=== PATIENT | female | born 1940 | race Caucasian/White ===

== ENCOUNTER 2019-12-13 11:57 | Outpatient (CLI) | payer OTHER, SELFPAY ==
--- NOTE | ~2019-12-13 | MM_ITS ---
EXAMINATION: MM screening [facility] BI w chad HISTORY: Screening mammogram TECHNIQUE: Craniocaudal and mediolateral oblique 3-D tomosynthesis images were obtained and synthetic 2-D images were generated. CAD analysis was submitted and interpreted. COMPARISON: 09/08/2018 bilateral diagnostic digital mammogram 09/10/2017 and 02/24/2017 diagnostic left digital mammogram 02/15/2017, 02/12/2016 bilateral digital screening mammogram examinations BREAST PARENCHYMAL COMPOSITION: The breasts are heterogeneously dense, which may obscure small masses . FINDINGS: There is a history of prior right breast biopsy in 2006 with diagnosis of lobular carcinoma in situ. An apparently new 3 x 7 mm opacity is noted in the posterior mid upper left breast (craniocaudal Chad synthesis image 34/54). Diagnostic left mammogram and left breast ultrasound examination are recommen ded. Otherwise there is no evidence of suspicious mass, calcification, or architectural distortion to sugg est malignancy in either breast. There has been no other suspicious interval change. IMPRESSION: 1. New 3 x 7 mm opacity in posterior upper mid left breast; 2. Diagnostic left mammogram and left breast ultrasound examination are recommended BI-RADS Category 0: Incomplete: Needs additional imaging evaluation. Reviewed, dictated and finalized at location D. IMPRESSION: 1. New 3 x 7 mm opacity in posterior upper mid left breast; 2. Diagnostic left mammogram and left breast ultrasound examination are recomme nded BI-RADS Category 0: Incomplete: Needs additional imaging evaluation.
== END 2019-12-13 11:58 | disposition home or self-care (01) ==
PROVIDERS: PCP Internal Medicine; Visit Provider Internal Medicine
DX: Z12.31 Encounter for screening mammogram for malignant neoplasm of breast (principal); R92.8 Other abnormal and inconclusive findings on diagnostic imaging of breast
CPT/HCPCS: 77063; 77067

== ENCOUNTER → 2020-01-03 09:44 | Outpatient (CLI) | payer OTHER, SELFPAY ==
--- NOTE | ~2020-01-03 | MM_ITS ---
EXAMINATION: MM diagnostic mammo unilat LT HISTORY: Follow-up left breast asymmetry TECHNIQUE: Additional 3-D tomosynthesis images of the left breast were performed and synthetic 2-D im ages were generated. CAD analysis was submitted and interpreted. COMPARISON: 12/13/2019 BREAST PARENCHYMAL COMPOSITION: Breast composed of scattered areas of fibroglandular density. FINDINGS: The focal asymmetry medially in the left breast on CC view compresses with spot views, comp atible with superimposed fibroglandular tissue. No suspicious masses, calcifications or architectural distortion are identified in the left breast to suggest malignancy. IMPRESSION: 1. No mammographic evidence for malignancy in the left breast. 2. Routine yearly screening mammogram and regular clinical breast examination are recommended. BI-RADS Category 1: Negative Reviewed, dictated and finalized at location A. IMPRESSION: 1. No mammographic evidence for malignancy in the left breast. 2. Routine yearly screening mammogram and regular clinical breast examination a re recommended. BI-RADS Category 1: Negative
== END ==
PROVIDERS: PCP Internal Medicine; Visit Provider Internal Medicine
DX: R92.8 Other abnormal and inconclusive findings on diagnostic imaging of breast (principal)
CPT/HCPCS: 77065

== ENCOUNTER → 2021-01-04 11:51 | Outpatient (CLI) | payer OTHER, SELFPAY ==
--- NOTE | ~2021-01-04 | MM_ITS ---
EXAMINATION: MM screening [facility] BI w prisca HISTORY: Screening mammogram TECHNIQUE: Craniocaudal and mediolateral oblique 3-D tomosynthesis images were obtained and synthetic 2-D images were generated. CAD analysis was submitted and interpreted. COMPARISON: 01/03/2020 diagnostic left mammogram 12/13/2019 bilateral digital screening mammogram 09/12/2018 bilateral diagnostic mammography and limited left breast ultrasound 09/10/2017 and 02/24/2017 diagnostic left mammogram 02/15/2017 and 02/12/2016 bilateral digital screening mammogram examinations BREAST PARENCHYMAL COMPOSITION: The breasts are heterogeneously dense, which may obscure small masses . FINDINGS: Stable architectural distortion and retraction of the right breast; prior right breast biop sy in 2006. Occasional benign calcifications. There is no evidence of suspicious mass, calcification, or architectural distortion to suggest malignancy in either breast. There has been no suspicious int erval change. IMPRESSION: 1. No mammographic evidence of malignancy. 2. Recommend routine screening mammography in one year. BI-RADS Category 2: Benign finding(s). Reviewed, dictated and finalized at location A.
== END ==
PROVIDERS: PCP Internal Medicine; Visit Provider Internal Medicine
DX: Z12.31 Encounter for screening mammogram for malignant neoplasm of breast (principal)
CPT/HCPCS: 77063; 77067

== ENCOUNTER 2022-02-19 10:55 | Outpatient (CLI) | payer OTHER, SELFPAY ==
--- NOTE | ~2022-02-19 | MM_ITS ---
EXAMINATION: MM screening tre BI w prisca HISTORY: Screening mammogram, family history of breast cancer in her mother. TECHNIQUE: Craniocaudal and mediolateral oblique 3-D tomosynthesis images were obtained and synthetic 2-D images were generated. CAD analysis was submitted and interpreted. COMPARISON: 01/04/2021, 01/03/2020, 12/13/2019 BREAST PARENCHYMAL COMPOSITION: The breasts are heterogeneously dense, which may obscure small masses . FINDINGS: No suspicious mass, calcification, or architectural distortion are identified in either carly ast to suggest malignancy. There has been no suspicious interval change. IMPRESSION: 1. No mammographic evidence of malignancy. 2. Recommend routine screening mammography while the patient remains in good health. BI-RADS Category 1: Negative Reviewed, dictated and finalized at location A. MOMETER MECHANIC IMPRESSION: 1. No mammographic evidence of malignancy. 2. Recommend routine screening mammography while the patient remains in good he alth. BI-RADS Category 1: Negative
== END 2022-02-19 10:56 | disposition home or self-care (01) ==
LOC: ANHIMG 10:55
PROVIDERS: Visit Provider Family Medicine
DX: Z12.31 Encounter for screening mammogram for malignant neoplasm of breast (principal); Z85.3 Personal history of malignant neoplasm of breast
CPT/HCPCS: 77063; 77067

== ENCOUNTER 2022-03-25 11:49 | Inpatient (IN) | payer OTHER, SELFPAY ==
[2022-03-25] VITALS (15 sets, daily range): BP systolic 99–160; BP diastolic 52–93; PULSE 85–114; RESP 16–24; TEMP 36.4–37.7; O2SAT 91–99; BMI 28.8; BMI 28.0
--- NOTE | ~2022-03-25 | CT_ITS ---
CT Scan of the Chest without Contrast: Clinical Indication: Pleural effusion Technique: Contiguous sections were acquired throughout the chest without intravenous contrast. Dose reduction technique was used on this scan by utilizing automated exposure control and iterative recon struction technique. The dose-length product (DLP) was 159.97 mGy-cm. Findings: There is a lobulated mass at the anteromedial left upper lobe region, extending into the anterior med iastinum, measuring approximately 4.8 x 3.6 cm in transverse dimensions (axial image 40 for example). There are probable several enlarged metastatic lymph nodes in the anterior mediastinum and prevascul ar region, somewhat adjacent to the dominant mass. There are also probable numerous pleural metastati c implants throughout the left hemithorax, with extensive somewhat nodular thickening of the pleural surface. There is a very large, probably partially loculated left pleural effusion, with essentially complete left lower lobe atelectasis and partial left upper lobe atelectasis. Mass effect and large left effusion resultant mediastinal shift to the left. Minimal right pleural ef fusion is present. Right lung is otherwise clear. No pericardial effusion. Images through the upper abdomen reveal no abnormalities. Impression: 4.8 x 3.6 cm anteromedial left upper lobe mass extending into the anterior mediastinum, consistent wi th neoplastic lesion, likely bronchogenic carcinoma. Probable metastatic, mildly enlarged mediastinal lymph nodes adjacent to the mass, as detailed above. Suspected extensive pleural metastatic disease in the left hemithorax. Large, partially loculated left pleural effusion with complete left lower lobe atelectasis and partia l left upper lobe atelectasis. Minimal right pleural effusion. Reviewed, dictated and finalized at location . GER STUDIO Impression: 4.8 x 3.6 cm anteromedial left upper lobe mass extending into the anterior medi astinum, consistent with neoplastic lesion, likely bronchogenic carcinoma. Probable metastatic, mildly enlarged mediastinal lymph nodes adjacent to the ma ss, as detailed above. Suspected extensive pleural metastatic disease in the left hemithorax. Large, partially loculated left pleural effusion with complete left lower lobe atelectasis and partial left upper lobe atelectasis. Minimal right pleural effusion.
--- NOTE | ~2022-03-25 | XR_ITS ---
EXAMINATION: [id number] DATE: 03/27/2022 12:33 INDICATION: Left pleural effusion status post thoracentesis. TECHNIQUE: Frontal and lateral views of the chest were obtained. COMPARISON: Chest single view 03/25/2022 FINDINGS: There is a small left pleural effusion. There are airspace opacities in left mid and lower lung zones. No pneumothorax. The heart size is normal. IMPRESSION: 1. Small left pleural effusion with improvement status post thoracentesis. 2. Airspace opacities in left mid and lower lung zones, consistent with atelectasis versus pneumonia. Reviewed, dictated and finalized at location A. WINDER MACHINE OPERATOR IMPRESSION: 1. Small left pleural effusion with improvement status post thoracentesis. 2. Airspace opacities in left mid and lower lung zones, consistent with atelect asis versus pneumonia.
--- NOTE | ~2022-03-25 | US_ITS ---
EXAMINATION: 1. US thoracentesis guidance only 2. US biopsy lung w/imaging DATE: 03/27/2022 12:44 INDICATION: Left pleural thickening and pleural effusion. TECHNIQUE: The procedure and its risks, benefits, and alternatives were discussed with the patient. P otential risks discussed included bleeding, infection, and pneumothorax. The patient understood the r isks and agreed to proceed. The skin was prepped and draped in sterile fashion. 1% lidocaine was used for local anesthesia. Under ultrasound guidance, four 18-gauge core needle biopsies were taken of th e left posterior parietal pleura. Under ultrasound guidance, a 5 Fr catheter with trochar was advanced into the left pleural effusion. Fluid was aspirated. The catheter was removed, and a dressing was applied. There were no immediate co mplications. FINDINGS: Ultrasound images demonstrate the core biopsy needle spanning the left posterior parietal pleura. Ult rasound images demonstrate a left pleural effusion and the catheter within the fluid. IMPRESSION: 1. Ultrasound-guided core needle biopsy of the left posterior parietal pleura. 2. Successful ultrasound-guided thoracentesis yielding 850 mL of shabbir-colored fluid. Reviewed, dictated and finalized at location A. IGHT SLICING MACHINE OPERATOR IMPRESSION: 1. Ultrasound-guided core needle biopsy of the left posterior parietal pleura. 2. Successful ultrasound-guided thoracentesis yielding 850 mL of shabbir-colored fluid.
--- NOTE | ~2022-03-25 | XR_ITS ---
Clinical Indication: Shortness of breath PA and lateral views of the chest: Comparison: 03/24/2012 Findings: Large left pleural effusion is present, with near white out of the left hemithorax. Suspect ed minimal right pleural fluid. Cardiomediastinal silhouette is within normal limits. Bones and soft tissues are unremarkable. Impression: Large left pleural effusion. Probable minimal right pleural effusion. Reviewed, dictated and finalized at location . E FERRY OPERATOR Impression: Large left pleural effusion. Probable minimal right pleural effusion.
--- NOTE | ~2022-03-25 | XR_ITS ---
EXAMINATION: [id number] DATE: 03/25/2022 16:37 INDICATION: Left pleural effusion status post thoracentesis. TECHNIQUE: A single frontal view of the chest was obtained. COMPARISON: Chest CT 03/25/2022, chest 2 views at 12:29 PM FINDINGS: There is a large left pleural effusion. There are airspace opacities at left lung base, lik luis eduardo atelectasis. No pneumothorax. The heart size is normal. IMPRESSION: 1. Large left pleural effusion with improvement status post thoracentesis. Reviewed, dictated and finalized at location A. STANT PROFESSOR OF PHYSICS
--- NOTE | ~2022-03-25 | US_ITS ---
EXAMINATION: US thoracentesis DATE: 03/25/2022 16:44 INDICATION: pleural effusion TECHNIQUE: The procedure and its risks, benefits, and alternatives were discussed with the patient. P otential risks discussed included bleeding, infection, and pneumothorax. The patient understood the r isks and agreed to proceed. The skin was prepped and draped in sterile fashion. 1% lidocaine was used for local anesthesia. Under ultrasound guidance, a 5 Fr catheter with trochar was advanced into the left pleural effusion. Fluid was aspirated. The catheter was removed, and a dressing was applied. The re were no immediate complications. FINDINGS: Ultrasound images demonstrate a left pleural effusion and the catheter within the fluid. IMPRESSION: 1. Successful ultrasound-guided thoracentesis yielding 1000 mL of shabbir-colored fluid. Reviewed, dictated and finalized at location A. E CATCHER IMPRESSION: 1. Successful ultrasound-guided thoracentesis yielding 1000 mL of shabbir-colore d fluid.
--- NOTE | 2022-03-25 11:50 | ECG_ITS ---
Measurements Intervals [place] Rate: 106 P: 50 [place]: 130 QRS: -15 QRSD: 97 T: 113 QT: 319 QTc: 425 Interpretive Statements SINUS TACHYCARDIA INCOMPLETE RIGHT BUNDLE BRANCH BLOCK LEFT VENTRICULAR HYPERTROPHY AND ST-T CHANGE MINIMAL Q WAVES- HIGH LATERAL LEADS ABNORMAL ECG NO PREVIOUS ECG AVAILABLE FOR COMPARISON Electronically Signed On 03-25-2022 12:10:44 SHELTER MONITOR by Kevin Hart D.O.
[2022-03-25 12:15] LABS: Basophils Absolute Auto 0.1 K/mm3 (0.0-0.1); Basophils Percent Auto 0.5 % (0.2-1.2); Eosinophils Absolute Auto 0.2 K/mm3 (0-0.3); Eosinophils Percent Auto 1.8 % (0-4.4); Hemoglobin 10.6 g/dL (12.0-15.0); Immature Granulocyte Absolute 0.04 K/mm3 (0.00-0.031); Immature Granulocyte Percent A 0.4 % (0-0.5); Lymphocytes Absolute Auto 1.25 K/mm3 (0.9-3.2); Lymphocytes Percent Auto 13.4 % (18.3-44.2); Mean Corpuscular HGB Conc 29.4 g/dl (32-36); Mean Corpuscular Hemoglobin 25.4 pg (26-34); Mean Corpuscular Volume 86.3 fl (80-100); Monocytes Absolute Auto 0.8 K/mm3 (0.1-0.6); Monocytes Percent Auto 8.5 % (2.6-8.5); Neutrophils Percent Auto 75.4 % (45.5-73.1); Platelet Count Result 344 k/mm3 (150-375); Red Blood Count 4.17 M/mm3 (4.2-5.4); Red Cell Distribution Width 14.8 % (11.5-14.5); White Blood Count 9.3 K/mm3 (4.5-10.0)
[2022-03-25 12:32] LABS: Alanine Aminotransferase 19 U/L (6-35); Albumin Level 3.5 g/dL (3.5-5.1); Alkaline Phosphatase 128 U/L (38-126); Anion Gap 6 mmol/L (8-16); Aspartate Amino Transferase 34 U/L (14-36); Bilirubin,Total 0.4 mg/dL (0.2-1.3); Blood Urea Nitrogen 22 mg/dL (7-17); Calcium 8.9 mg/dL (8.4-10.2); Carbon Dioxide 28 mmol/L (22-30); Chloride 105 mmol/L (98-107); Estimated CRCL calculation 22 ml/min; Estimated Glomerular Filt Rate 33; Glucose 98 mg/dL (65-110); Sodium 139 mmol/L (137-145)
--- NOTE | 2022-03-25 13:30 | ED.SOB ---
HPI - SOB/Dyspnea General Chief Complaint: Shortness of Breath/Dyspnea Stated Complaint: SOB Time Seen by Provider: 03/25/22 13:30 Source: patient Mode of arrival: ambulatory Limitations: no limitations History of Present Illness HPI Narrative: The patient is an 81 yo female (former smoker), hx of breast cancer, DM, HTN, presenting to the ER for evaluation of dyspnea. Patient reports dyspnea since COVID infection in 11/10, with worsening dyspnea over the past week. Patient states she has been too dyspneic to walk or complete normal ADLs. Pt denies productive cough, fever, chest pain. She denies leg swelling or calf pain. Pt denies other pain. No lightheadedness or dizziness. No weakness. History obtained directly from patient. I reviewed patient's chart, patient with office visit to primary care physician's office today, found to be borderline hypoxic and sent to our emergency department for evaluation of her dyspnea. Related Data Home Medications Medication Instructions Recorded Confirmed acetaminophen 650 mg 650 mg PO Q8H 12/09/21 03/25/22 tablet,extended release aspirin 81 mg tablet,delayed 81 mg PO DAILY 12/09/21 03/25/22 release insulin glargine 100 unit/mL (3 10 unit subcut DAILY 12/09/21 03/25/22 mL) subcutaneous pen (Lantus Solostar U-100 Insulin) budesonide-formoterol HFA 80 2 puff inhalation BID 03/25/22 03/25/22 mcg-4.5 mcg/actuation aerosol inhaler (Symbicort) Allergies Allergy/AdvReac Type Severity Reaction Status Date / Time gentamicin Allergy Severe ATN Verified 03/25/22 19:09 codeine Allergy Mild nausea Verified 03/25/22 19:09 methocarbamol AdvReac Mild Rash Verified 03/25/22 19:09 Contrast Media Allergy Mild N/V, Uncoded 03/25/22 19:09 STOMACH PAIN Review of Systems Review of Systems: CONSTITUTIONAL: Denies fever, chills, or sweats. EYES: Denies visual changes, redness, or discharge. ENT: Denies rhinorrhea, congestion, sore throat, or otalgia. CARDIOVASCULAR: Denies chest pain, palpitations, or edema. RESPIRATORY: Denies cough, reports dyspnea GASTROINTESTINAL: Denies abdominal pain, nausea, vomiting, or diarrhea. GENITOURINARY: Denies dysuria or hematuria. SKIN: Denies rash or itching. MUSCULOSKELETAL: Denies back pain, joint pain, or myalgia. NEUROLOGIC: Denies headache, numbness, or weakness. 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 with stage 1 through stage 4 chronic kidney disease Chronic kidney disease, stage 3 (moderate) Chronic pain Diabetes mellitus with renal manifestations, controlled Hearing loss History of antineoplastic chemotherapy History of malignant neoplasm of breast History of tobacco use Impacted cerumen of both ears Insomnia, unspecified Long-term insulin use Mixed hyperlipidemia Reflux esophagitis Shortness of breath Vitamin D deficiency Family History Family History Mother Cerebrovascular accident Family history of malignant neoplasm of breast in first degree relative Acute myocardial infarction Sibling Malignant neoplasm of prostate Family history of malignant neoplasm Father Acute myocardial infarction Other Diabetes mellitus Social History Social History Smoking packs per day: 0.8 Smoking cigarettes per day: 16.0 Years smoked: 40 Smoking pack-years: 32.00 Smoking status: Former smoker Tobacco type: cigarettes Smoking end date: 03/22/90 Alcohol intake: never Substance use: never Lack of Transportation: No Lack of Food: Never True Current Housing: I Have Housing Concerned About Future Housing: No Difficulty Paying Gas/Electric Bills: No Difficulty Paying for Meds: No Currently Unemployed: No Education: Don't Know Difficulty w/ Childcare or
[2022-03-25 14:22] LABS: INR 1.2; Partial Thromboplastin Time 31.8 SECONDS (22.3-36.8); Prothrombin Time 14.3 Seconds (11.1-14.7)
[2022-03-25 15:09] LABS: Lactate Dehydrogenase 235 U/L (120-246); Triglycerides 84 mg/dL (<150)
[2022-03-25 15:33] LABS: Influenza A QL RT-PCR Negative (Negative); Influenza B QL RT-PCR Negative (Negative); SARS-CoV-2 RNA PCR Negative
[2022-03-25] MEDS: ONDANSETRON INJ 4 MG/2 ML VIAL IV PUSH (15:39)
--- NOTE | 2022-03-25 16:18 | PC.NURSE ---
Pt taken to have thoracentesis at this time
[2022-03-25 16:56] LABS: pH Pleural Fluid 7.178 (7.210-7.500)
--- NOTE | 2022-03-25 17:45 | PM.IMHP ---
H&P: HPI History of Present Illness Date/Time: 03/25/22 17:45 Chief Complaint: Shortness of breath. Narrative: This is a very pleasant 81-year-old female with insulin-dependent diabetes, hypertension, chronic kidney disease, and breast cancer who presented to the emergency department from home for evaluation of shortness of breath. She had COVID in October 2021 and since that time she feels that her breathing has not returned to baseline. Over the past 1 month however she has become increasingly dyspnea on lesser and lesser exertion and she made an appointment with her doctor today for evaluation. She was noted to be hypoxic and was directed to the emergency department or her SpO2 has been stable above 90% on room air. Chest x-ray showed a large left pleural effusion with near whiteout of the left hemithorax and a subsequent CT of the chest showed a 4.8 x 3.6 centimeter anteromedial left upper lobe mass concerning for bronchogenic carcinoma in addition to a large, partially loculated left pleural effusion. Thoracentesis yielded 100 mL of shabbir colored urine and she reports feeling a bit better with regards to her breathing since that time however she is now having mild pleuritic pain and a dry cough. She is being admitted in this setting for further treatment and evaluation. With further questioning she admits an unintentional 10 pound weight loss in the last 1 month or so. Her appetite has been poor and she is just not hungry. She has not been having nausea or vomiting though did have some nausea today. She denies syncope, near syncope, exertional chest pain, pleuritic pain, palpitations, orthopnea, paroxysmal nocturnal dyspnea, edema, and calf pain Review of Systems Review of Systems: Twelve systems were reviewed and are negative except for as per HPI. [facility] Past Medical History Medical History Breast cancer Status post lumpectomy and anti hormone therapy. Chronic kidney disease, stage 3 (moderate) Chronic pain Hearing loss History of tobacco use Insomnia, unspecified Insulin dependent type 2 diabetes mellitus Mixed hyperlipidemia Reflux esophagitis Shortness of breath Vitamin D deficiency Surgical History Surgical History History of appendectomy History of breast biopsy History of exploratory laparotomy History of hernia repair History of lumpectomy Family History Family History Mother Cerebrovascular accident Family history of malignant neoplasm of breast in first degree relative Acute myocardial infarction Sibling Malignant neoplasm of prostate Family history of malignant neoplasm Father Acute myocardial infarction Other Diabetes mellitus Social History Social History Social History: Surrogate medical decision maker: Janet Lo, daughter. Code status: Full code. Smoking packs per day: 0.8 Smoking cigarettes per day: 16.0 Years smoked: 40 Smoking pack-years: 32.00 Smoking status: Former smoker Tobacco type: cigarettes Smoking end date: 03/22/90 Alcohol intake: never Substance use: never Lack of Transportation: No Lack of Food: Never True Current Housing: I Have Housing Concerned About Future Housing: No Difficulty Paying Gas/Electric Bills: No Difficulty Paying for Meds: No Currently Unemployed: No Education: Don't Know Difficulty w/ Childcare or Family Care: No Additional living arrangements comments: with 1 daughter. Lives in [place]. 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 Spiritual care concerns: No Meds Home Medications and Allergies Home Medications Medication Instructions Recorded Confirmed Type losartan 100 mg tablet 100 mg PO DAILY #90 tabs 06/02/21 03/26/22 Rx si
--- NOTE | 2022-03-25 18:49 | ADMGEN ---
This patient, Maria Dolores Lo, was admitted to [facility] Surg Room 317-02. Patient/family oriented to hospital policies and general routines including ID bracelet, bed and alarms, visiting hours, pain management, procedures, bathroom and other care routines, personal items, smoking policy, room service/diet, and visiting hours. Information on how to activate the Rapid Response Team has been discussed. Patient/Family are encouraged to report perceived risks to care and to ask questions if they do not understand what they are told or what they should do.
[2022-03-25] MEDS: ACETAMINOPHEN 325 MG TABLET 650 MG PO (22:02)
[2022-03-25 22:10] LABS: Appearance Pleural Fluid Hazy (Clear); Color Pleural Fluid Yellow (Colorless); Neutrophils Pleural Fluid 14 % (0-25); Nucleated Cell Pleural Fluid 419 /uL (0-1000); Pleural fluid source Pleural fluid; RBC Pleural Fluid 1207 /uL (0-0)
[2022-03-25 22:11] LABS: Lymphocytes Pleural Fluid 70 %; Macrophages Pleural Fluid 16 %
[2022-03-26] MEDS: traMADol HCL (*CRX) 50 MG TABLET PO ×2 (04:04→11:36)
[2022-03-26 06:00] VITALS: BP 144/56; PULSE 77; RESP 16; TEMP 36.7; O2SAT 94
[2022-03-26] MEDS: ACETAMINOPHEN 325 MG TABLET 650 MG PO ×3 (06:22→22:01)
[2022-03-26 06:51] LABS: Hematocrit 30.9 % (37.0-47.0); Hemoglobin 9.4 g/dL (12.0-15.0); Mean Corpuscular HGB Conc 30.4 g/dl (32-36); Mean Corpuscular Volume 85.6 fl (80-100); Mean Platelet Volume 10.8 fl (7.4-10.4); Platelet Count Result 323 k/mm3 (150-375); Red Blood Count 3.61 M/mm3 (4.2-5.4); Red Cell Distribution Width 14.6 % (11.5-14.5); White Blood Count 8.1 K/mm3 (4.5-10.0)
[2022-03-26 07:07] LABS: Alanine Aminotransferase 16 U/L (6-35); Albumin Level 2.8 g/dL (3.5-5.1); Alkaline Phosphatase 100 U/L (38-126); Anion Gap 2 mmol/L (8-16); Aspartate Amino Transferase 32 U/L (14-36); Bilirubin,Total 0.3 mg/dL (0.2-1.3); Blood Urea Nitrogen 17 mg/dL (7-17); CRP 6.2 mg/dL (<1.0); Calcium 8.5 mg/dL (8.4-10.2); Carbon Dioxide 29 mmol/L (22-30); Chloride 106 mmol/L (98-107); Estimated CRCL calculation 23 ml/min; Estimated Glomerular Filt Rate 36; Glucose 105 mg/dL (65-110); Potassium 4.3 mmol/L (3.4-5.0); Sodium 137 mmol/L (137-145)
[2022-03-26 07:17] LABS: Hemoglobin A1C 6.7 % (<5.7)
[2022-03-26 07:22] LABS: Procalcitonin 0.1 ng/mL
[2022-03-26 08:31] LABS: Glucose Point of Care 107 mg/dl (65-105)
[2022-03-26 08:32] LABS: Iron 17 ug/dL (37-170)
[2022-03-26 08:42] LABS: Percent Iron Saturation 9 % (20-50)
[2022-03-26 09:03] LABS: Thyroid Stimulating Hormone Reflex 0.807 uIU/mL (0.465-4.68)
--- NOTE | 2022-03-26 09:15 | P.PNIM_ITS ---
Progress Note: A&P Assessment and Plan (1) Mass of left lung: Code(s): R91.8 - Other nonspecific abnormal finding of lung field Status: Acute Assessment and Plan: 81-year-old female presented to the ER on 03/25/2022 with chief complaint of worsening dyspnea with exertion over the past month. Chest x-ray revealed large left-sided pleural effusion. CT revealed left lung mass concerning for primary bronchogenic carcinoma and finding suggestive of local metastatic disease. * Thoracentesis yielded a 1000 mL of shabbir colored fluid * Cell count, Gram stain, culture, pH, cytology pending at this time * Dr. Dong consulted in the ED * Patient started on broad-spectrum antibiotics, vancomycin and cefepime for possible underlying infection * BUN creatinine stable * Patient states that she has had 10 lb weight loss over the past month with associated cough and decreased appetite. * Elevated CRP * Total protein and albumin is decreased * Consult hematology/oncology * Consult pulmonology * Monitor labs -stable (2) Pleural effusion: Code(s): J90 - Pleural effusion, not elsewhere classified Status: Acute Assessment and Plan: * Thoracentesis, yielding a 1000 mL of shabbir colored fluid * This is improved patient's breathing and shortness of breath * Patient continuing to have pleuritic chest pain as well as cough. (3) Anemia: Code(s): D64.9 - Anemia, unspecified Status: Acute Assessment and Plan: Patient found to have normocytic anemia iron studies ordered * Iron studies revealed iron deficiency anemia * Iron supplement ordered daily * Monitor H&H (4) Insulin dependent type 2 diabetes mellitus: Code(s): E11.9 - Type 2 diabetes mellitus without complications; Z79.4 - [facility] (current) use of insulin Status: Chronic Assessment and Plan: Chronic * Patient started on 10 units of Lantus with sliding scale of 2-5 units NovoLog * Hypoglycemic protocols initiated * Bedside glucose management a.c. HS * Diabetic diet (5) Chronic kidney disease, stage 3 (moderate): Code(s): N18.3 - Chronic kidney disease, stage 3 (moderate) Status: Chronic Assessment and Plan: Chronic * Monitor BUN and creatinine * Previous labs revealed a creatinine usually between 1.4 and 1.9 Subjective Date/time seen: 03/26/22 09:15 Interval history: 81-year-old female with a history of diabetes, hyperlipidemia, history of breast cancer, CKD. Patient presented in ER due to shortness of breath. Chest x-ray revealed left pleural effusion. CT chest revealed left upper lobe mass suspected bronchogenic carcinoma. Patient states that she did have a 10 lb weight loss recently as well as a decreased appetite. Patient underwent thoracentesis. Patient did have cough after fluid was taken off of her lungs bu t has since resolved. Patient does have some back pain at the site of the thoracentesis. Patient no longer having shortness of breath, denies chest pain, nausea, vomiting, abdominal pain, fever, dizziness and headache. Review of Systems Review of Systems: All systems reviewed & are unremarkable except as noted in HPI and below Exam Narrative: GENERAL: Comfortable, no acute distress HENMT: moist mucous membranes EYES: EOM intact b/l NECK: no lymphadenopathy RESPIRATORY: Right upper and lower lung clear to auscultation, absent breath sounds over left lower lung and distant breath sounds over left upper lung. CARDIO: RRR GI: soft, nontender, bowel sounds present SKIN: no rashes EXTREMITIES: no ed
--- NOTE | 2022-03-26 09:15 | PM.IMPN ---
Progress Note: A&P Assessment and Plan (1) Mass of left lung: Code(s): R91.8 - Other nonspecific abnormal finding of lung field Status: Acute Assessment and Plan: 81-year-old female presented to the ER on 03/25/2022 with chief complaint of worsening dyspnea with exertion over the past month. Chest x-ray revealed large left-sided pleural effusion. CT revealed left lung mass concerning for primary bronchogenic carcinoma and finding suggestive of local metastatic disease. Thoracentesis yielded a 1000 mL of shabbir colored fluid Cell count, Gram stain, culture, pH, cytology pending at this time Dr. Dong consulted in the ED Patient started on broad-spectrum antibiotics, vancomycin and cefepime for possible underlying infection BUN creatinine stable Patient states that she has had 10 lb weight loss over the past month with associated cough and decreased appetite. Elevated CRP Total protein and albumin is decreased Consult hematology/oncology Consult pulmonology Monitor labs -stable (2) Pleural effusion: Code(s): J90 - Pleural effusion, not elsewhere classified Status: Acute Assessment and Plan: Thoracentesis, yielding a 1000 mL of shabbir colored fluid This is improved patient's breathing and shortness of breath Patient continuing to have pleuritic chest pain as well as cough. (3) Anemia: Code(s): D64.9 - Anemia, unspecified Status: Acute Assessment and Plan: Patient found to have normocytic anemia iron studies ordered Iron studies revealed iron deficiency anemia Iron supplement ordered daily Monitor H&H (4) Insulin dependent type 2 diabetes mellitus: Code(s): E11.9 - Type 2 diabetes mellitus without complications; Z79.4 - terminal supervisor (current) use of insulin Status: Chronic Assessment and Plan: Chronic Patient started on 10 units of Lantus with sliding scale of 2-5 units NovoLog Hypoglycemic protocols initiated Bedside glucose management a.c. HS Diabetic diet (5) Chronic kidney disease, stage 3 (moderate): Code(s): N18.3 - Chronic kidney disease, stage 3 (moderate) Status: Chronic Assessment and Plan: Chronic Monitor BUN and creatinine Previous labs revealed a creatinine usually between 1.4 and 1.9 Subjective Date/time seen: 03/26/22 09:15 Interval history: 81-year-old female with a history of diabetes, hyperlipidemia, history of breast cancer, CKD. Patient presented in ER due to shortness of breath. Chest x-ray revealed left pleural effusion. CT chest revealed left upper lobe mass suspected bronchogenic carcinoma. Patient states that she did have a 10 lb weight loss recently as well as a decreased appetite. Patient underwent thoracentesis. Patient did have cough after fluid was taken off of her lungs but has since resolved. Patient does have some back pain at the site of the thoracentesis. Patient no longer having shortness of breath, denies chest pain, nausea, vomiting, abdominal pain, fever, dizziness and headache. Review of Systems Review of Systems: All systems reviewed & are unremarkable except as noted in HPI and below Exam Narrative: GENERAL: Comfortable, no acute distress HENMT: moist mucous membranes EYES: EOM intact b/l NECK: no lymphadenopathy RESPIRATORY: Right upper and lower lung clear to auscultation, absent breath sounds over left lower lung and distant breath sounds over left upper lung. CARDIO: RRR GI: soft, nontender, bowel sounds present SKIN: no rashes EXTREMITIES: no edema, redness or tenderness Objective Data Vital Signs Vital Signs: Vital Signs - 24 hr 03/25/22 11:51 03/25/22 13:55 03/25/22 14:53 Temperature 99.9 F H Pulse Rate 114 H 97 Respiratory Rate 24 H 17 Blood Pressure 139/65 159/76 H Pulse Oximetry 92 95 97 Oxygen Delivery Room Air Room Air Oxygen Flow Rate 03/25/22 14:15 03/25/22 14:53 03/25/22 15:01 Temperature Pulse Rate 95 97 10
[2022-03-26] MEDS: SIMVASTATIN 20 MG TABLET PO (09:38)
[2022-03-26] MEDS: TERAZOSIN HCL 5 MG CAPSULE PO (09:38)
[2022-03-26] MEDS: INSULIN GLARGINE (*BKC) 100 UNITS/ML 10 UNITS SUB-Q (09:39)
[2022-03-26] MEDS: LOSARTAN POTASSIUM 100 MG TABLET PO (09:39)
[2022-03-26] MEDS: FLUTICASONE/SALMETEROL 45-21 MCG INHALER 1 PUFF 2 PUFF INHALATION (10:41)
[2022-03-26 11:58] LABS: Glucose Point of Care 146 mg/dl (65-105)
[2022-03-26 13:49] VITALS: BMI 28.9
[2022-03-26 14:38] VITALS: BP 116/71; PULSE 95; RESP 16; TEMP 36.7; O2SAT 95
--- NOTE | 2022-03-26 16:07 | PM.CNPUL ---
Assessment and Plan Assessment and plan (1) Mass of left lung: Code(s): R91.8 - Other nonspecific abnormal finding of lung field Status: Acute Assessment and Plan: Patient went to a 28 pack year history of tobacco use, quit in 1990, 7-10 lb weight loss over the last month and now with a left upper lobe mass and a large left pleural effusion. Patient had a thoracentesis and this is lymphocytic effusion with pH of 7.18 and no organisms seen on Gram stain. Clinically her shortness of breath improved following removal of 1000 mL pleural fluid. Etiology of mass and left pleural effusion includes lung cancer. She has no infectious complaints at this time. Will await cytology from the 1st thoracentesis. If this is negative will likely room at recommend repeat thoracentesis as there still appears to be a large left pleural effusion by chest x-ray. Patient has no infectious complaints the pH over fluid is 7.18 at this time would continue vancomycin and cefepime, both started 03/25/2022, until cultures are negative. The patient does not have bullous emphysematous changes on her CT scan and has no wheezing. At this time I do not think she has a COPD exacerbation and I see no need for bronchodilators, inhaled steroids or systemic steroids. I will discontinue the Advair. Discuss this with the patient's daughter, son-in-law, son and [id number] at the bedside. Discussed with EV Gloria. Will follow with you. History of Present Illness History of Present Illness Consult date: 03/26/22 Chief complaint: Left Pleural Effusion/Left Lung Mass Narrative: 03/26/2022: This is a new pulmonary consult for left lung mass in left pleural effusion. 81-year-old woman with a history of hypertension, diabetes, hyperlipidemia, breast cancer status post lumpectomy approximately 15 years ago followed by 5 years of tamoxifen followed with yearly mammograms a last of which was negative on 02/19/2022. Five weeks ago the patient developed shortness of breath. Prior to this the patient could walk 1 mi over 20 minutes and in no respiratory limitations in her activity of daily living. She denied fever, chills, rigors, phlegm, hemoptysis, or chest pain. Over the last 5 years her shortness of breath and dyspnea on exertion have worsened such at now she can only walk 1/2 block. She felt that her left chest was full. Patient tells me she smokes cigarettes from [id number] at 3/4 pack per day for a total of 28 pack years. Patient was exposed to secondhand smoke from her father and from her from [id number]. 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 Patient denies cancer, prior chemotherapy or radiation therapy. Patient presented to the emergency department on 03/25/2021 with a complaint of shortness of breath -dyspnea on exertion. Her room air saturations were 92%. Her white blood cell count was 9.3 with 1.8% eosinophils, hemoglobin was 10.6, her creatinine was 1.5, her serum bicarbonate was 28 her influenza in COVID RT PCR studies were negative. Her chest x-ray demonstrated a large left pleural effusion taking up approximately 85% of the left hemithorax with a shift of the trachea to the right. CT scan of the chest demonstrated a large left pleural effusion a left upper lobe 4 x 8 x 3.6 mass extending into the anterior mediastinum with enlarged mediastinal lymph nodes. Complete left lower lobe atelectasis and partial left upper lobe atelectasis. Minimal right pleural effusion. Patient underwent a left thoracentesis with 1000 mL of shabbir colored fluid removed. G stain showed moderate white blood cells and no organisms seen, pH was 7.18, nucleated cells of 419 with 14% neutrophils, 16% macrophage, chemistries and pathology are pending. Patient was empirically started vancomycin and cefepime.
[2022-03-26 17:00] LABS: Glucose Point of Care 110 mg/dl (65-105)
--- NOTE | 2022-03-26 19:18 | PDONCCN ---
HPI - Date of Consult Date/Time: 03/26/22 19:18 Requesting Physician: Samy De Los Santos MD Primary Care Provider: Te Gill, DO - Consult Narrative Reason for consult: Lung mass Narrative: Maria Dolores Lo is a 81 year old female with history of right-sided breast cancer diagnosed 15 years ago early stage disease status post lumpectomy and then endocrine therapy for 5 years duration. She was followed by Dr. Calixto mcallister up to 10 years ago. She came into the hospital with shortness of breath without any hemoptysis. She lost about [address] chest showed 4.8 x 3.6 cm left upper lobe lung mass with left-sided pleural effusion. Thoracentesis was performed and cytology is pending. Other labs showed normocytic anemia with renal insufficiency. She quit smoking more than 15 years ago. Review of Systems - Review of Systems All systems reviewed & are unremarkable except as noted in HPI and bel - Neurologic Reports system reviewed and no additional complaints, except as documented PMFSH Medical History: Medical History (Last Updated 03/26/22 @ 09:28 by Ines Ritchie PA-C) Breast cancer Status post lumpectomy and anti hormone therapy. Chronic kidney disease, stage 3 (moderate) Chronic pain Hearing loss History of tobacco use Insomnia, unspecified Insulin dependent type 2 diabetes mellitus Mixed hyperlipidemia Reflux esophagitis Shortness of breath Vitamin D deficiency Surgical History: Surgical History (Last Updated 03/25/22 @ 22:51 by Dory Gresham PA-C) History of appendectomy History of breast biopsy History of exploratory laparotomy History of hernia repair History of lumpectomy Family History: Family History (Last Reviewed 03/25/22 @ 22:51 by Dory Gresham PA-C) Mother Cerebrovascular accident Family history of malignant neoplasm of breast in first degree relative Acute myocardial infarction Sibling Malignant neoplasm of prostate Family history of malignant neoplasm Father Acute myocardial infarction Other Diabetes mellitus - Social History Social History: Social History (Last Updated 03/25/22 @ 22:52 by Dory Gresham PA-C) Alcohol Use: Alcohol intake: never Substance Use: Substance use: never Others: Spiritual care concerns: No Smoking Status: Smoking status: Former smoker Tobacco type: cigarettes Smoking end date: 03/22/90 Smoking Pack-years: Smoking packs per day: 0.8 Smoking cigarettes per day: 16.0 Years smoked: 40 Smoking pack-years: 32.00 Social Determinants of Health: Has the Lack of Transportation Kept You From Medical Appointments or From Getting Medications?: No Within the Past 12 Months, Were You Worried Whether Your Food Would Run Out Before You Got Money to Buy More?: Never True What is Your Housing Situation Today?: I Have Housing Are You Worried That in the Next 2 Months, You May Not Have Your Own Housing to Live In?: No Do You Have Trouble Paying Your Heating Or Electricity Bill?: No Do You Have Trouble Paying For Medicines?: No Are You Currently Unemployed and Looking for Work?: No Highest Level of Education Completed: Don't Know Do You Have Trouble With Childcare or the Care of a Family Member?: No Exam - Vital Signs Vital Signs - 24 hr 03/25/22 22:00 03/25/22 21:53 03/25/22 23:00 Temperature 36.4 C Pulse Rate 85 Respiratory Rate 16 Blood Pressure 138/61 Pulse Oximetry 95 91 Oxygen Delivery Room Air Room Air Oxygen Flow Rate 03/25/22 23:05 03/26/22 06:00 03/26/22 14:38 Temperature 36.7 C 36.7 C Pulse Rate 77 95 Respiratory Rate 16 16 Blood Pressure 144/56 H 116/71 Pulse Oximetry 96 94 95 Oxygen Delivery Nasal Cannula Oxygen Flow Rate 2 - Exam HEENT: EOMI, PERRLA, mucous membranes moist and pink Neck: supple. No: JVD Lungs: clear to auscultation, normal air movement Heart: no mu
[2022-03-26 19:21] VITALS: BP 112/55; PULSE 77; RESP 18; TEMP 36.6; O2SAT 91
[2022-03-26 20:00] VITALS: O2SAT 96
[2022-03-26 20:56] LABS: Glucose Point of Care 113 mg/dl (65-105)
[2022-03-27] VITALS (9 sets, daily range): BP systolic 106–140; BP diastolic 52–67; PULSE 81–93; RESP 16–20; TEMP 36.5–36.9; O2SAT 85–94
[2022-03-27] MEDS: ACETAMINOPHEN 325 MG TABLET 650 MG PO ×3 (05:18→20:21)
[2022-03-27 08:11] LABS: Glucose Point of Care 97 mg/dl (65-105)
--- NOTE | 2022-03-27 08:24 | P.PNIM_ITS ---
Progress Note: A&P Assessment and Plan (1) Mass of left lung: Code(s): R91.8 - Other nonspecific abnormal finding of lung field Status: Acute Assessment and Plan: 81-year-old female presented to the ER on 03/25/2022 with chief complaint of worsening dyspnea with exertion over the past month. Chest x-ray revealed large left-sided pleural effusion. CT revealed left lung mass concerning for primary bronchogenic carcinoma and finding suggestive of local metastatic disease. * Thoracentesis yielded a 1000 mL of shabbir colored fluid * Cell count, culture, pH, cytology pending at this time * G stain revealed moderate WBCs and no organisms seen * Dr. Dong consulted in the ED * Patient started on broad-spectrum antibiotics, vancomycin and cefepime for possible underlying infection * BUN creatinine stable * Patient states that she has had 10 lb weight loss over the past month with associated cough and decreased appetite. * Elevated CRP * Total serum protein and albumin is decreased * Consult hematology/oncology * Pulmonology following patient * Plan to repeat thoracentesis if cytology comes back negative. * 03/27/22 cytology from pleural fluid on 03/25/2022 was negative for malignancy. Patient underwent left thoracentesis with 850 mL of shabbir colored fluid removed. Patient underwent ultrasound-guided core needle biopsy. * Repeat chest x-ray demonstrated improved left pleural effusion * Per per pulmonology patient is okay to follow-up with them as an outpatient. * Oncology seeing patient and following. * Monitor labs -stable (2) Pleural effusion: Code(s): J90 - Pleural effusion, not elsewhere classified Status: Acute Assessment and Plan: * 03/25/2022 Thoracentesis, yielding a 1000 mL of shabbir colored fluid * This is improved patient's breathing and shortness of breath * Patient continuing to have pleuritic chest pain as well as cough. * 1622nd thoracentesis yielding 850 mL of shabbir fluid (3) Anemia: Code(s): D64.9 - Anemia, unspecified Status: Acute Assessment and Plan: Patient found to have normocytic anemia iron studies ordered * Iron studies revealed iron deficiency anemia * Iron supplement ordered daily * Monitor H&H (4) Insulin dependent type 2 diabetes mellitus: Code(s): E11.9 - Type 2 diabetes mellitus without complications; Z79.4 - laborer marine terminal (current) use of insulin Status: Chronic Assessment and Plan: Chronic * Patient started on 10 units of Lantus with sliding scale of 2-5 units NovoLog * Hypoglycemic protocols initiated * Bedside glucose management a.c. HS * Diabetic diet (5) Chronic kidney disease, stage 3 (moderate): Code(s): N18.3 - Chronic kidney disease, stage 3 (moderate) Status: Chronic Assessment and Plan: Chronic * Monitor BUN and creatinine * Previous labs revealed a creatinine usually between 1.4 and 1.9 Subjective Date/time seen: 03/27/22 08:24 Interval history: 81-year-old female with a history of diabetes, hyperlipidemia, history of breast cancer, CKD. Patient presented in ER due to shortness of breath. Chest x-ray revealed left pleural effusion. CT chest revealed left upper lobe mass suspected bronchogenic carcinoma. Patient states that she did have a 10 lb weight loss recently as well as a decreased appetite. Patient underwent thoracentesis on 03/26/2022. With speaking with patient today she states that she is fatigued. Patient denies chest pain, shortness a breath, nausea, vomiting, fever, abdominal pain and dizziness. Patient states that she has a dry cough but it is very mil
--- NOTE | 2022-03-27 08:24 | PM.IMPN ---
Progress Note: A&P Assessment and Plan (1) Mass of left lung: Code(s): R91.8 - Other nonspecific abnormal finding of lung field Status: Acute Assessment and Plan: 81-year-old female presented to the ER on 03/25/2022 with chief complaint of worsening dyspnea with exertion over the past month. Chest x-ray revealed large left-sided pleural effusion. CT revealed left lung mass concerning for primary bronchogenic carcinoma and finding suggestive of local metastatic disease. Thoracentesis yielded a 1000 mL of shabbir colored fluid Cell count, culture, pH, cytology pending at this time G stain revealed moderate WBCs and no organisms seen Dr. Dong consulted in the ED Patient started on broad-spectrum antibiotics, vancomycin and cefepime for possible underlying infection BUN creatinine stable Patient states that she has had 10 lb weight loss over the past month with associated cough and decreased appetite. Elevated CRP Total serum protein and albumin is decreased Consult hematology/oncology Pulmonology following patient Plan to repeat thoracentesis if cytology comes back negative. 03/27/22 cytology from pleural fluid on 03/25/2022 was negative for malignancy. Patient underwent left thoracentesis with 850 mL of shabbir colored fluid removed. Patient underwent ultrasound-guided core needle biopsy. Repeat chest x-ray demonstrated improved left pleural effusion Per per pulmonology patient is okay to follow-up with them as an outpatient. Oncology seeing patient and following. Monitor labs -stable (2) Pleural effusion: Code(s): J90 - Pleural effusion, not elsewhere classified Status: Acute Assessment and Plan: 03/25/2022 Thoracentesis, yielding a 1000 mL of shabbir colored fluid This is improved patient's breathing and shortness of breath Patient continuing to have pleuritic chest pain as well as cough. 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 HS Diabetic diet (5) Chronic kidney disease, stage 3 (moderate): Code(s): N18.3 - Chronic kidney disease, stage 3 (moderate) Status: Chronic Assessment and Plan: Chronic Monitor BUN and creatinine Previous labs revealed a creatinine usually between 1.4 and 1.9 Subjective Date/time seen: 03/27/22 08:24 Interval history: 81-year-old female with a history of diabetes, hyperlipidemia, history of breast cancer, CKD. Patient presented in ER due to shortness of breath. Chest x-ray revealed left pleural effusion. CT chest revealed left upper lobe mass suspected bronchogenic carcinoma. Patient states that she did have a 10 lb weight loss recently as well as a decreased appetite. Patient underwent thoracentesis on 03/26/2022. With speaking with patient today she states that she is fatigued. Patient denies chest pain, shortness a breath, nausea, vomiting, fever, abdominal pain and dizziness. Patient states that she has a dry cough but it is very mild. Review of Systems Review of Systems: All systems reviewed & are unremarkable except as noted in HPI and below Exam Narrative: GENERAL: Comfortable, no acute distress HENMT: moist mucous membranes EYES: EOM intact b/l NECK: no lymphadenopathy RESPIRATORY: Right upper and lower lung clear to auscultation, absent breath sounds over left lower lung and distan
[2022-03-27] MEDS: FERROUS SULFATE 324 MG TABLET PO (08:41)
[2022-03-27] MEDS: CHOLECALCIFEROL 1,000 UNITS TABLET 5000 UNITS PO (08:42)
[2022-03-27] MEDS: SIMVASTATIN 20 MG TABLET PO (08:42)
[2022-03-27] MEDS: LOSARTAN POTASSIUM 100 MG TABLET PO (08:42)
[2022-03-27] MEDS: MULTIVITAMINS THERAPEUTIC TAB (*BKC) 1 TABLET PO (08:42)
[2022-03-27] MEDS: ASPIRIN 81 MG ENTERIC TABLET PO (08:42)
[2022-03-27] MEDS: SACCHAROMYCES BOULARDII 250 MG CAPSULE PO (08:42)
[2022-03-27] MEDS: TERAZOSIN HCL 5 MG CAPSULE PO (08:43)
[2022-03-27] MEDS: INSULIN GLARGINE (*BKC) 100 UNITS/ML 10 UNITS SUB-Q (08:43)
[2022-03-27 09:42] LABS: Basophils Absolute Auto 0.1 K/mm3 (0.0-0.1); Basophils Percent Auto 0.9 % (0.2-1.2); Eosinophils Absolute Auto 0.3 K/mm3 (0-0.3); Eosinophils Percent Auto 3.6 % (0-4.4); Hematocrit 32.9 % (37.0-47.0); Hemoglobin 9.8 g/dL (12.0-15.0); Immature Granulocyte Absolute 0.04 K/mm3 (0.00-0.031); Immature Granulocyte Percent A 0.5 % (0-0.5); Lymphocytes Absolute Auto 1.17 K/mm3 (0.9-3.2); Lymphocytes Percent Auto 15.1 % (18.3-44.2); Mean Corpuscular HGB Conc 29.8 g/dl (32-36); Mean Corpuscular Hemoglobin 25.5 pg (26-34); Mean Corpuscular Volume 85.5 fl (80-100); Mean Platelet Volume 10.9 fl (7.4-10.4); Monocytes Absolute Auto 0.9 K/mm3 (0.1-0.6); Monocytes Percent Auto 10.9 % (2.6-8.5); Neutrophils Absolute Auto 5.4 K/mm3 (1.3-6.7); Platelet Count Result 325 k/mm3 (150-375); Red Blood Count 3.85 M/mm3 (4.2-5.4); Red Cell Distribution Width 14.6 % (11.5-14.5); White Blood Count 7.8 K/mm3 (4.5-10.0)
[2022-03-27 09:58] LABS: Alanine Aminotransferase 17 U/L (6-35); Alkaline Phosphatase 100 U/L (38-126); Anion Gap 2 mmol/L (8-16); Aspartate Amino Transferase 31 U/L (14-36); Bilirubin,Total 0.3 mg/dL (0.2-1.3); Blood Urea Nitrogen 16 mg/dL (7-17); Calcium 8.8 mg/dL (8.4-10.2); Carbon Dioxide 29 mmol/L (22-30); Chloride 108 mmol/L (98-107); Estimated CRCL calculation 24 ml/min; Estimated Glomerular Filt Rate 36; Glucose 120 mg/dL (65-110); Potassium 4.2 mmol/L (3.4-5.0); Sodium 139 mmol/L (137-145)
[2022-03-27 10:21] LABS: Anisocytosis 1+ (NORMAL); Hypochromasia 1+ (NORMAL); Platelet Estimate Adequate (Adequate); Poikilocytosis 1+ (NORMAL); Schistocytes None Seen (NORMAL)
[2022-03-27] MEDS: diphenhydrAMINE HCl CAP 25 MG CAPSULE 50 MG PO (11:21)
[2022-03-27] MEDS: PYRIDOXINE HCL 25 MG TABLET PO (11:22)
--- NOTE | 2022-03-27 12:46 | PM.PNPUL ---
Progress Note: A&P Assessment and Plan (1) Mass of left lung: Code(s): R91.8 - Other nonspecific abnormal finding of lung field Status: Acute Assessment and Plan: Patient went to a 28 pack year history of tobacco use, quit in 1990, 7-10 lb weight loss over the last month and now with a left upper lobe mass and a large left pleural effusion. Patient had a thoracentesis and this is lymphocytic effusion with pH of 7.18 and no organisms seen on Gram stain. Clinically her shortness of breath improved following removal of 1000 mL pleural fluid. Etiology of mass and left pleural effusion includes lung cancer. She has no infectious complaints at this time. Will await cytology from the 1st thoracentesis. If this is negative will likely room at recommend repeat thoracentesis as there still appears to be a large left pleural effusion by chest x-ray. Patient has no infectious complaints the pH over fluid is 7.18 at this time would continue vancomycin and cefepime, both started 03/25/2022, until cultures are negative. The patient does not have bullous emphysematous changes on her CT scan and has no wheezing. At this time I do not think she has a COPD exacerbation and I see no need for bronchodilators, inhaled steroids or systemic steroids. I will discontinue the Advair. Discuss this with the patient's daughter, son-in-law, son and [id number] at the bedside. 03/27 patient states that she has improved. She has minimal cough, this is dry with no hemoptysis. Cytology from pleural fluid on 03/25/2022 was negative for malignancy. I spoke with radiologist and patient underwent a left thoracentesis with 850 mL of shabbir colored fluid removed and patient had a ultrasound-guided core needle biopsy of a thickened parietal pleura. Repeat chest x-ray demonstrates improved left pleural effusion. White blood cell count is 7.8, currently she is on room air with saturations 90-91%. Oncology has been consulted. Pleural fluid is negative growth at 48 hours. Will discontinue antibiotics. From a pulmonary perspective patient is ready to be discharged home on no pulmonary medicines. I have ordered a home O2 assessment. Oncology has been consulted in the patient should follow up with the oncologist. Discussed with EV Gloria. Will sign off, call with questions. Subjective Date/time seen: 01/06/23 12:46 Interval history: 03/26/2022:? This is a new pulmonary consult for left lung mass in left pleural effusion.? 81-year-old woman with a history of hypertension, diabetes, hyperlipidemia, breast cancer status post lumpectomy approximately 15 years ago followed by 5 years of tamoxifen? followed with yearly mammograms a last of which was negative on 02/19/2022.? Five weeks ago the patient developed shortness of breath.? Prior to this the patient could walk 1 mi over 20 minutes and in no respiratory limitations in her activity of daily living.? She denied fever, chills, rigors, phlegm, hemoptysis, or chest pain.? Over the last 5 years her shortness of breath and dyspnea on exertion have worsened such at now she can only walk 1/2 block.? She felt that her left chest was full. ? Patient tells me she smokes cigarettes from [id number] at 3/4 pack per day for a total of? 28 pack years.? Patient was exposed to secondhand smoke from her father and from her from [id number].? 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 Patient denies cancer, prior chemotherapy or radiation therapy. Patient presented to the emergency? department on 03/25/2021 with a complaint of shortness of breath -dyspnea on exertion. ? Her room air saturations were 92%. ? Her white blood cell count was 9.3 with 1.8% eosinophils, hemoglobin was 10.6, her creatinine was 1.5, her serum bicarbonate was 28 her influenza in COVID RT PCR studies were
[2022-03-27 13:08] LABS: Glucose Point of Care 87 mg/dl (65-105)
[2022-03-27] MEDS: traMADol HCL (*CRX) 50 MG TABLET PO (15:38)
--- NOTE | 2022-03-27 16:33 | HOMEO2EVAL ---
Evaluation was performed at [facility]
--- NOTE | 2022-03-27 16:35 | HOMEO2EVAL ---
Evaluation was performed at [facility] Home Oxygen Evaluation RC: Home Oxygen (O2) Evaluation Start: 03/27/22 12:51 Freq: ONCE Status: Active Protocol: RPE Activity Type Activity Date Activity User E-sign Co-sign Detail Recorded Client Recorded Date Recorded By Document 03/27/22 14:30 NUNO [id number] 03/27/22 16:35 NUNO Document 03/27/22 14:35 NUNO [id number] 03/27/22 16:35 NUNO 03/27/22 03/27/22 14:30 14:35 Home O2 Evaluation [Oxygen] -Test Phase Resting Resting -Oxygen Delivery Room Air Nasal Cannula -Oxygen Flow Rate (L/min) 1 [Pulse Oximetry] -Pulse Oximetry (90-100 %) 85 L 92 [Pulse Rate] -Pulse Rate (60-100 beats/min) 85 [Comments] -Home Oxygen Evaluation Comments PT REQUIRES 1L HOME O2. UNABLE TO AMBULATE. [Charges] -Treatment Charges O2 Evaluation - Inpatient
--- NOTE | 2022-03-27 16:35 | PCRCNOTE ---
HOME O2 EVAL DONE, UNABLE TO WALK DUE TO RECENT BIOPSY AND THORACENTESIS. REQUIRED 1 L WITH REST. SET UP WITH [facility]. FAXED ORDER AND PAPERWORK. SHE WILL NEED A TANK WHEN SHE D/C...I DIDNT PUT A TRANSPORT TANK IN HER ROOM
[2022-03-27 17:26] LABS: Glucose Point of Care 92 mg/dl (65-105)
[2022-03-27 21:46] LABS: Glucose Point of Care 119 mg/dl (65-105)
[2022-03-28 06:00] VITALS: BP 145/62; PULSE 106; RESP 20; TEMP 37.6; O2SAT 90
[2022-03-28] MEDS: ACETAMINOPHEN 325 MG TABLET 650 MG PO (06:05)
[2022-03-28 07:32] LABS: Basophils Absolute Auto 0.1 K/mm3 (0.0-0.1); Basophils Percent Auto 0.7 % (0.2-1.2); Eosinophils Absolute Auto 0.3 K/mm3 (0-0.3); Eosinophils Percent Auto 2.7 % (0-4.4); Hematocrit 35.3 % (37.0-47.0); Hemoglobin 10.5 g/dL (12.0-15.0); Immature Granulocyte Absolute 0.05 K/mm3 (0.00-0.031); Immature Granulocyte Percent A 0.5 % (0-0.5); Lymphocytes Absolute Auto 1.52 K/mm3 (0.9-3.2); Lymphocytes Percent Auto 14.1 % (18.3-44.2); Mean Corpuscular HGB Conc 29.7 g/dl (32-36); Mean Corpuscular Hemoglobin 24.8 pg (26-34); Mean Corpuscular Volume 83.3 fl (80-100); Monocytes Percent Auto 9.6 % (2.6-8.5); Neutrophils Absolute Auto 7.8 K/mm3 (1.3-6.7); Neutrophils Percent Auto 72.4 % (45.5-73.1); Platelet Count Result 367 k/mm3 (150-375); Red Blood Count 4.24 M/mm3 (4.2-5.4); Red Cell Distribution Width 14.7 % (11.5-14.5); White Blood Count 10.8 K/mm3 (4.5-10.0)
--- NOTE | 2022-03-28 07:37 | P.PNIM_ITS ---
Progress Note: A&P Assessment and Plan (1) Mass of left lung: Code(s): R91.8 - Other nonspecific abnormal finding of lung field Status: Acute Assessment and Plan: 81-year-old female presented to the ER on 03/25/2022 with chief complaint of worsening dyspnea with exertion over the past month. Chest x-ray revealed large left-sided pleural effusion. CT revealed left lung mass concerning for primary bronchogenic carcinoma and finding suggestive of local metastatic disease. * Thoracentesis yielded a 1000 mL of shabbir colored fluid * Cell count, culture, pH, cytology pending at this time * G stain revealed moderate WBCs and no organisms seen * Dr. Dong consulted in the ED * Patient started on broad-spectrum antibiotics, vancomycin and cefepime for possible underlying infection * BUN creatinine stable * Patient states that she has had 10 lb weight loss over the past month with associated cough and decreased appetite. * Elevated CRP * Total serum protein and albumin is decreased * Consult hematology/oncology * Pulmonology following patient * Plan to repeat thoracentesis if cytology comes back negative. * 03/27/22 cytology from pleural fluid on 03/25/2022 was negative for malignancy. Patient underwent left thoracentesis with 850 mL of shabbir colored fluid removed. Patient underwent ultrasound-guided core needle biopsy. * Repeat chest x-ray demonstrated improved left pleural effusion * Per per pulmonology patient is okay to follow-up with them as an outpatient. * Oncology seeing patient and following. * Monitor labs -stable * 03/28/[address] Wen and he has discharged patient from his service and is okay following her as an outpatient. Will contact Dr. Dong today about discharge and follow up with the patient. (2) Pleural effusion: Code(s): J90 - Pleural effusion, not elsewhere classified Status: Acute Assessment and Plan: * 03/25/2022 Thoracentesis, yielding a 1000 mL of shabbir colored fluid * This is improved patient's breathing and shortness of breath * Patient continuing to have pleuritic chest pain as well as cough. * 03/27/22 thoracentesis yielding 850 mL of shabbir fluid * 03/28/22 Will plan to follow up as an outpatient with oncology for test results. (3) Anemia: Code(s): D64.9 - Anemia, unspecified Status: Acute Assessment and Plan: Patient found to have normocytic anemia iron studies ordered * Iron studies revealed iron deficiency anemia * Iron supplement ordered daily * Monitor H&H (4) Insulin dependent type 2 diabetes mellitus: Code(s): E11.9 - Type 2 diabetes mellitus without complications; Z79.4 - termite exterminator (current) use of insulin Status: Chronic Assessment and Plan: Chronic * Patient started on 10 units of Lantus with sliding scale of 2-5 units NovoLog * Hypoglycemic protocols initiated * Bedside glucose management a.c. HS * Diabetic diet (5) Chronic kidney disease, stage 3 (moderate): Code(s): N18.3 - Chronic kidney disease, stage 3 (moderate) Status: Chronic Assessment and Plan: Chronic * Monitor BUN and creatinine * Previous labs revealed a creatinine usually between 1.4 and 1.9 Subjective Date/time seen: 03/28/22 07:37 Interval history: 81-year-old female with a history of diabetes, hyperlipidemia, history of breast cancer, CKD. Patient presented in ER due to shortness of breath. Chest x-ray revealed left pleural effusion. CT chest revealed left upper lobe mass suspected bronchogenic carcinoma. Patient states that she did have a 10 lb weight loss recently as well as a
--- NOTE | 2022-03-28 07:37 | PM.IMPN ---
Progress Note: A&P Assessment and Plan (1) Mass of left lung: Code(s): R91.8 - Other nonspecific abnormal finding of lung field Status: Acute Assessment and Plan: 81-year-old female presented to the ER on 03/25/2022 with chief complaint of worsening dyspnea with exertion over the past month. Chest x-ray revealed large left-sided pleural effusion. CT revealed left lung mass concerning for primary bronchogenic carcinoma and finding suggestive of local metastatic disease. Thoracentesis yielded a 1000 mL of shabbir colored fluid Cell count, culture, pH, cytology pending at this time G stain revealed moderate WBCs and no organisms seen Dr. Dong consulted in the ED Patient started on broad-spectrum antibiotics, vancomycin and cefepime for possible underlying infection BUN creatinine stable Patient states that she has had 10 lb weight loss over the past month with associated cough and decreased appetite. Elevated CRP Total serum protein and albumin is decreased Consult hematology/oncology Pulmonology following patient Plan to repeat thoracentesis if cytology comes back negative. 03/27/22 cytology from pleural fluid on 03/25/2022 was negative for malignancy. Patient underwent left thoracentesis with 850 mL of shabbir colored fluid removed. Patient underwent ultrasound-guided core needle biopsy. Repeat chest x-ray demonstrated improved left pleural effusion Per per pulmonology patient is okay to follow-up with them as an outpatient. Oncology seeing patient and following. Monitor labs -stable 03/28/[address] Wen and he has discharged patient from his service and is okay following her as an outpatient. Will contact Dr. Dong today about discharge and follow up with the patient. (2) Pleural effusion: Code(s): J90 - Pleural effusion, not elsewhere classified Status: Acute Assessment and Plan: 03/25/2022 Thoracentesis, yielding a 1000 mL of shabbir colored fluid This is improved patient's breathing and shortness of breath Patient continuing to have pleuritic chest pain as well as cough. 03/27/22 thoracentesis yielding 850 mL of shabbir fluid 03/28/22 Will plan to follow up as an outpatient with oncology for test results. (3) Anemia: Code(s): D64.9 - Anemia, unspecified Status: Acute Assessment and Plan: Patient found to have normocytic anemia iron studies ordered Iron studies revealed iron deficiency anemia Iron supplement ordered daily Monitor H&H (4) Insulin dependent type 2 diabetes mellitus: Code(s): E11.9 - Type 2 diabetes mellitus without complications; Z79.4 - bed bug exterminator (current) use of insulin Status: Chronic Assessment and Plan: Chronic Patient started on 10 units of Lantus with sliding scale of 2-5 units NovoLog Hypoglycemic protocols initiated Bedside glucose management a.c. HS Diabetic diet (5) Chronic kidney disease, stage 3 (moderate): Code(s): N18.3 - Chronic kidney disease, stage 3 (moderate) Status: Chronic Assessment and Plan: Chronic Monitor BUN and creatinine Previous labs revealed a creatinine usually between 1.4 and 1.9 Subjective Date/time seen: 03/28/22 07:37 Interval history: 81-year-old female with a history of diabetes, hyperlipidemia, history of breast cancer, CKD. Patient presented in ER due to shortness of breath. Chest x-ray revealed left pleural effusion. CT chest revealed left upper lobe mass suspected bronchogenic carcinoma. Patient states that she did have a 10 lb weight loss recently as well as a decreased appetite. Patient underwent thoracentesis on 03/26/2022. Repeat thoracentesis on 03/27/22. Objective Data Vital Signs Vital Signs: Vital Signs - 24 hr 03/27/22 08:00 03/27/22 12:41 03/27/22 12:42 Temperature Pulse Rate 85 90 Respiratory Rate 18 18 Blood Pressure 140/63 130/67 Pulse Oximetry 90 90 92 Oxygen Delivery Nasal Cannula Oxygen Flow
[2022-03-28 07:47] LABS: Glucose Point of Care 89 mg/dl (65-105)
[2022-03-28 07:55] LABS: Alanine Aminotransferase 18 U/L (6-35); Albumin Level 3.2 g/dL (3.5-5.1); Alkaline Phosphatase 106 U/L (38-126); Anion Gap 3 mmol/L (8-16); Aspartate Amino Transferase 30 U/L (14-36); Bilirubin,Total 0.4 mg/dL (0.2-1.3); Blood Urea Nitrogen 15 mg/dL (7-17); Carbon Dioxide 30 mmol/L (22-30); Chloride 107 mmol/L (98-107); Estimated CRCL calculation 23 ml/min; Estimated Glomerular Filt Rate 36; Glucose 94 mg/dL (65-110); Potassium 4.5 mmol/L (3.4-5.0); Sodium 140 mmol/L (137-145)
[2022-03-28 08:00] VITALS: O2SAT 91
[2022-03-28 08:04] LABS: Anisocytosis 1+ (NORMAL); Hypochromasia 1+ (NORMAL); Platelet Estimate Adequate (Adequate); Schistocytes None Seen (NORMAL)
[2022-03-28] MEDS: LOSARTAN POTASSIUM 100 MG TABLET PO (08:29)
[2022-03-28] MEDS: CHOLECALCIFEROL 1,000 UNITS TABLET 5000 UNITS PO (08:29)
[2022-03-28] MEDS: PYRIDOXINE HCL 25 MG TABLET PO (08:29)
[2022-03-28] MEDS: ASPIRIN 81 MG ENTERIC TABLET PO (08:29)
[2022-03-28] MEDS: FERROUS SULFATE 324 MG TABLET PO (08:29)
[2022-03-28] MEDS: TERAZOSIN HCL 5 MG CAPSULE PO (08:30)
[2022-03-28] MEDS: MULTIVITAMINS THERAPEUTIC TAB (*BKC) 1 TABLET PO (08:30)
[2022-03-28] MEDS: SIMVASTATIN 20 MG TABLET PO (08:30)
[2022-03-28] MEDS: SACCHAROMYCES BOULARDII 250 MG CAPSULE PO (08:30)
[2022-03-28] MEDS: INSULIN GLARGINE (*BKC) 100 UNITS/ML 10 UNITS SUB-Q (08:30)
[2022-03-28 11:11] LABS: Glucose Point of Care 185 mg/dl (65-105)
--- NOTE | 2022-03-28 11:46 | P.DS_ITS ---
DS: Admitting Diagnosis Discharge Date 03/28/22 Admitting Diagnosis Left-sided pleural effusion DS: Discharge Diagnosis Discharge Diagnosis (1) Mass of left lung: Code(s): R91.8 - Other nonspecific abnormal finding of lung field Status: Acute Assessment and Plan: 81-year-old female presented to the ER on 03/25/2022 with chief complaint of worsening dyspnea with exertion over the past month. Chest x-ray revealed large left-sided pleural effusion. CT revealed left lung mass concerning for primary bronchogenic carcinoma and finding suggestive of local metastatic disease. * Thoracentesis yielded a 1000 mL of shabbir colored fluid * Cell count, culture, pH, cytology pending at this time * G stain revealed moderate WBCs and no organisms seen * Dr. Dong consulted in the ED * Patient started on broad-spectrum antibiotics, vancomycin and cefepime for possible underlying infection * BUN creatinine stable * Patient states that she has had 10 lb weight loss over the past month with associated cough and decreased appetite. * Elevated CRP * Total serum protein and albumin is decreased * Consult hematology/oncology * Pulmonology following patient * Plan to repeat thoracentesis if cytology comes back negative. * 03/27/22 cytology from pleural fluid on 03/25/2022 was negative for malignancy. Patient underwent left thoracentesis with 850 mL of shabbir colored fluid removed. Patient underwent ultrasound-guided core needle biopsy. * Repeat chest x-ray demonstrated improved left pleural effusion * Per per pulmonology patient is okay to follow-up with them as an outpatient. * Oncology seeing patient and following. * Monitor labs -stable * 03/28/[address] Wen and he has discharged patient from his service and is okay following her as an outpatient. Call Dr. Garcia today and he agreed with discharge and follow-up in his office on Wednesday. Patient's home O2 eval recommended 1 L of oxygen at home. (2) Pleural effusion: Code(s): J90 - Pleural effusion, not elsewhere classified Status: Acute Assessment and Plan: * 03/25/2022 Thoracentesis, yielding a 1000 mL of shabbir colored fluid * This is improved patient's breathing and shortness of breath * Patient continuing to have pleuritic chest pain as well as cough. * 03/27/22 thoracentesis yielding 850 mL of shabbir fluid * 03/28/22 Will plan to follow up as an outpatient with oncology for test results. (3) Anemia: Code(s): D64.9 - Anemia, unspecified Status: Acute Assessment and Plan: Patient found to have normocytic anemia iron studies ordered * Iron studies revealed iron deficiency anemia * Iron supplement ordered daily * Monitor H&H (4) Insulin dependent type 2 diabetes mellitus: Code(s): E11.9 - Type 2 diabetes mellitus without complications; Z79.4 - [facility] (current) use of insulin Status: Chronic Assessment and Plan: Chronic * Patient started on 10 units of Lantus with sliding scale of 2-5 units NovoLog * Hypoglycemic protocols initiated * Bedside glucose management a.c. HS * Diabetic diet (5) Chronic kidney disease, stage 3 (moderate): Code(s): N18.3 - Chronic kidney disease, stage 3 (moderate) Status: Chronic Assessment and Plan: Chronic * Monitor BUN and creatinine * Previous labs revealed a creatinine usually between 1.4 and 1.9 DS: Summary Hospital Course Reason for hospitalization: Left-sided pleural effusion, left lung mass Hospital Course: This is a very pleasant 81-year-old female with insulin-dependent diabetes, hypertension, chronic ki
--- NOTE | 2022-03-28 11:46 | PM.DS ---
DS: Admitting Diagnosis Discharge Date 03/28/22 Admitting Diagnosis Left-sided pleural effusion DS: Discharge Diagnosis Discharge Diagnosis (1) Mass of left lung: Code(s): R91.8 - Other nonspecific abnormal finding of lung field Status: Acute Assessment and Plan: 81-year-old female presented to the ER on 03/25/2022 with chief complaint of worsening dyspnea with exertion over the past month. Chest x-ray revealed large left-sided pleural effusion. CT revealed left lung mass concerning for primary bronchogenic carcinoma and finding suggestive of local metastatic disease. Thoracentesis yielded a 1000 mL of shabbir colored fluid Cell count, culture, pH, cytology pending at this time G stain revealed moderate WBCs and no organisms seen Dr. Dong consulted in the ED Patient started on broad-spectrum antibiotics, vancomycin and cefepime for possible underlying infection BUN creatinine stable Patient states that she has had 10 lb weight loss over the past month with associated cough and decreased appetite. Elevated CRP Total serum protein and albumin is decreased Consult hematology/oncology Pulmonology following patient Plan to repeat thoracentesis if cytology comes back negative. 03/27/22 cytology from pleural fluid on 03/25/2022 was negative for malignancy. Patient underwent left thoracentesis with 850 mL of shabbir colored fluid removed. Patient underwent ultrasound-guided core needle biopsy. Repeat chest x-ray demonstrated improved left pleural effusion Per per pulmonology patient is okay to follow-up with them as an outpatient. Oncology seeing patient and following. Monitor labs -stable 03/28/[address] Wen and he has discharged patient from his service and is okay following her as an outpatient. Call Dr. Garcia today and he agreed with discharge and follow-up in his office on Wednesday. Patient's home O2 eval recommended 1 L of oxygen at home. (2) Pleural effusion: Code(s): J90 - Pleural effusion, not elsewhere classified Status: Acute Assessment and Plan: 03/25/2022 Thoracentesis, yielding a 1000 mL of shabbir colored fluid This is improved patient's breathing and shortness of breath Patient continuing to have pleuritic chest pain as well as cough. 03/27/22 thoracentesis yielding 850 mL of shabbir fluid 03/28/22 Will plan to follow up as an outpatient with oncology for test results. (3) Anemia: Code(s): D64.9 - Anemia, unspecified Status: Acute Assessment and Plan: Patient found to have normocytic anemia iron studies ordered Iron studies revealed iron deficiency anemia Iron supplement ordered daily Monitor H&H (4) Insulin dependent type 2 diabetes mellitus: Code(s): E11.9 - Type 2 diabetes mellitus without complications; Z79.4 - terminal manager (current) use of insulin Status: Chronic Assessment and Plan: Chronic Patient started on 10 units of Lantus with sliding scale of 2-5 units NovoLog Hypoglycemic protocols initiated Bedside glucose management a.c. HS Diabetic diet (5) Chronic kidney disease, stage 3 (moderate): Code(s): N18.3 - Chronic kidney disease, stage 3 (moderate) Status: Chronic Assessment and Plan: Chronic Monitor BUN and creatinine Previous labs revealed a creatinine usually between 1.4 and 1.9 DS: Summary Hospital Course Reason for hospitalization: Left-sided pleural effusion, left lung mass Hospital Course: This is a very pleasant 81-year-old female with insulin-dependent diabetes, hypertension, chronic kidney disease, and breast cancer who presented to the emergency department from home for evaluation of shortness of breath. Patient was found to be hypoxic and was put on 2 L of oxygen and this improved her oxygen saturation and she maintain this in the 90s. X-ray revealed large left pleural effusion with near whiteout of the left hemithorax. Subsequent CT revealed a 4.8 x 3.6 cm anteromedial
[2022-03-30 20:09] LABS: Glucose Pleural Fluid 12 mg/dL
[2022-03-30 20:13] LABS: LDH Pleural Fluid 2359 U/L; Total Protein Pleural Fluid 3.7 g/dL
[2022-03-31 13:36] LABS: Amylase, Pleural Fluid 58 U/L
[2022-04-01 12:52] LABS: Albumin Pleural Fluid 1.5 g/dL
[2022-04-01 17:37] LABS: Glucose Pleural Fluid <10 mg/dL
== END 2022-03-28 14:35 | disposition home or self-care (01) | DRG 181 ==
LOC: ANHED 14:12 → ANH3MEDSUR 17:26
PROVIDERS: Emergency Medicine; Internal Medicine Pulmonary Disease; Physician Assistant; Admitting Provider Internal Medicine; Emergency Provider Emergency Medicine; PCP Family Medicine; Visit Provider Internal Medicine Critical Care Medicine
DX: C34.92 Malignant neoplasm of unspecified part of left bronchus or lung (principal); C78.2 Secondary malignant neoplasm of pleura; J90 Pleural effusion, not elsewhere classified; D50.9 Iron deficiency anemia, unspecified; E11.22 Type 2 diabetes mellitus with diabetic chronic kidney disease; I12.9 Hypertensive chronic kidney disease with stage 1 through stage 4 chronic kidney disease, or unspecified chronic kidney disease; N18.30 Chronic kidney disease, stage 3 unspecified; E78.2 Mixed hyperlipidemia; Z20.822 Contact with and (suspected) exposure to COVID-19; R09.02 Hypoxemia; E55.9 Vitamin D deficiency, unspecified; Z79.4 Long term (current) use of insulin; Z85.3 Personal history of malignant neoplasm of breast; Z87.891 Personal history of nicotine dependence; Z86.16 Personal history of COVID-19; Z90.49 Acquired absence of other specified parts of digestive tract; Z79.82 Long term (current) use of aspirin
CPT/HCPCS: 32408; 32555; 36415; 71046; 71250; 80053; 82042; 82150; 82607; 82728; 82746; 82945; 82948; 83036; 83540; 83550; 83605; 83615; 83735; 83986; 84145; 84155; 84157; 84311; 84443; 84478; 85025; 85027; 85610; 85730; 86140; 87015; 87040; 87070; 87075; 87102; 87116; 87205; 87206; 87636; 88108; 88184; 88305; 88342; 89051; 93005; 94618; 94640; 96365; 96366; 96367; 96375; 99285; A9270; G0378; J0131; J0692; J1815; J2405; J3370

== ENCOUNTER 2022-05-15 10:00 | Outpatient (CLI) | payer OTHER, SELFPAY ==
[2022-05-15 10:19] LABS: Basophils Percent Auto 0.3 % (0.2-1.2); Eosinophils Absolute Auto 0.1 K/mm3 (0-0.3); Eosinophils Percent Auto 0.9 % (0-4.4); Hematocrit 28.4 % (37.0-47.0); Hemoglobin 8.5 g/dL (12.0-15.0); Immature Granulocyte Absolute 0.09 K/mm3 (0.00-0.031); Immature Granulocyte Percent A 0.8 % (0-0.5); Lymphocytes Absolute Auto 1.34 K/mm3 (0.9-3.2); Lymphocytes Percent Auto 11.7 % (18.3-44.2); Mean Corpuscular HGB Conc 29.9 g/dl (32-36); Mean Corpuscular Hemoglobin 23.4 pg (26-34); Mean Corpuscular Volume 78.2 fl (80-100); Mean Platelet Volume 9.8 fl (7.4-10.4); Monocytes Absolute Auto 1.1 K/mm3 (0.1-0.6); Monocytes Percent Auto 9.9 % (2.6-8.5); Neutrophils Absolute Auto 8.8 K/mm3 (1.3-6.7); Neutrophils Percent Auto 76.4 % (45.5-73.1); Platelet Count Result 579 k/mm3 (150-375); Red Blood Count 3.63 M/mm3 (4.2-5.4); Red Cell Distribution Width 17.4 % (11.5-14.5); White Blood Count 11.5 K/mm3 (4.5-10.0)
[2022-05-15 13:15] LABS: Hypochromasia 1+ (NORMAL); Ovalocytes 1+ (NORMAL); Schistocytes None Seen (NORMAL); Target Cells 1+ (NORMAL)
[2022-05-15 13:16] LABS: Anisocytosis 1+ (NORMAL); Atypical Lymphocytes Present; Poikilocytosis 1+ (NORMAL)
[2022-05-15 14:13] LABS: Alanine Aminotransferase 19 U/L (6-35); Albumin Level 3.2 g/dL (3.5-5.1); Alkaline Phosphatase 134 U/L (38-126); Anion Gap 6 mmol/L (8-16); Aspartate Amino Transferase 37 U/L (14-36); Bilirubin,Total 0.4 mg/dL (0.2-1.3); Blood Urea Nitrogen 22 mg/dL (7-17); Calcium 9.4 mg/dL (8.4-10.2); Carbon Dioxide 26 mmol/L (22-30); Chloride 105 mmol/L (98-107); Estimated Glomerular Filt Rate 36; Glucose 132 mg/dL (65-110); Potassium 4.4 mmol/L (3.4-5.0); Sodium 137 mmol/L (137-145)
[2022-05-19 13:38] LABS: CA 15-3 11 U/mL (<32)
== END 2022-05-15 10:01 | disposition home or self-care (01) ==
LOC: ANHLAB 10:01
PROVIDERS: PCP Family Medicine; Visit Provider Internal Medicine Hematology & Oncology
DX: C50.911 Malignant neoplasm of unspecified site of right female breast (principal); Z17.0 Estrogen receptor positive status [ER+]
CPT/HCPCS: 36415; 80053; 85025; 86300

== ENCOUNTER 2022-05-22 13:31 | Outpatient (CLI) | payer OTHER, SELFPAY ==
[2022-05-22 16:15] LABS: Iron 11 ug/dL (37-170)
[2022-05-22 16:25] LABS: Percent Iron Saturation 6 % (20-50)
== END 2022-05-22 13:32 | disposition home or self-care (01) ==
LOC: ANHLAB 13:32
PROVIDERS: PCP Family Medicine; Visit Provider Internal Medicine Hematology & Oncology
DX: D64.9 Anemia, unspecified (principal)
CPT/HCPCS: 36415; 82607; 82728; 83540; 83550

== ENCOUNTER 2022-06-15 22:23 | Inpatient (IN) | payer OTHER, SELFPAY ==
[2022-06-15] VITALS (12 sets, daily range): BP systolic 63–113; BP diastolic 43–85; PULSE 104–133; RESP 15–37; TEMP 36.6; O2SAT 90–100
--- NOTE | ~2022-06-15 | US_ITS ---
EXAMINATION: US thoracentesis DATE: 06/16/2022 13:40 INDICATION: pleural effusion TECHNIQUE: The procedure and its risks, benefits, and alternatives were discussed with the patient's daughter. Potential risks discussed included bleeding, infection, and pneumothorax. The patient under stood the risks and agreed to proceed. The skin was prepped and draped in sterile fashion. 1% lidocai ne was used for local anesthesia. Under ultrasound guidance, a 5 Fr catheter with trochar was advance d into the left pleural effusion. Fluid was aspirated. The catheter was removed, and a dressing was a pplied. There were no immediate complications. FINDINGS: Ultrasound images demonstrate a left pleural effusion and the catheter within the fluid. IMPRESSION: 1. Successful ultrasound-guided thoracentesis yielding 1200 mL of dark brown fluid. Reviewed, dictated and finalized at location A. IMPRESSION: 1. Successful ultrasound-guided thoracentesis yielding 1200 mL of dark brown f luid.
--- NOTE | ~2022-06-15 | XR_ITS ---
EXAMINATION: XR chest 1V portable DATE: 06/15/2022 23:29 INDICATION: Dyspnea. TECHNIQUE: A single frontal view of the chest was obtained. COMPARISON: Chest 2 views 03/27/2022, chest CT 03/25/2022 FINDINGS: There is complete opacification of left hemithorax with rightward displacement of the media stinum. No right-sided pleural effusion. No pneumothorax. The heart size is obscured. IMPRESSION: 1. 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 Reviewed, dictated and finalized at location A.
--- NOTE | ~2022-06-15 | XR_ITS ---
EXAMINATION: [id number] DATE: 06/16/2022 12:57 INDICATION: Left pleural effusion status post thoracentesis. TECHNIQUE: Frontal and lateral views of the chest were obtained. COMPARISON: Chest single view 06/15/2022, chest CT 03/25/2022 FINDINGS: There is a large loculated left pleural effusion. There is a small right pleural effusion. There are airspace opacities in left lung with a mid and lower lung zone predominance. No pneumothora x. The heart size is obscured. IMPRESSION: 1. Large loculated left pleural effusion with improvement status post thoracentesis. 2. Small right pleural effusion. 3. Airspace opacities in left lung, likely a combination of atelectasis and malignancy. Pneumonia can not be excluded. Reviewed, dictated and finalized at location A. IMPRESSION: 1. Large loculated left pleural effusion with improvement status post thoracent esis. 2. Small right pleural effusion. 3. Airspace opacities in left lung, likely a combination of atelectasis and mal ignancy. Pneumonia cannot be excluded.
--- NOTE | ~2022-06-15 | US_ITS ---
EXAMINATION:US venous doppler LE BI INDICATION:Leg edema TECHNIQUE: Multiple grayscale, color flow and Doppler images of the right and left lower extremity de ep venous systems were obtained and reviewed. COMPARISON:No prior studies for comparison. FINDINGS: The common femoral, superficial femoral and popliteal veins demonstrate normal respiratory variation, augmentation and compressibility. Color flow is also seen within the posterior tibial, pe roneal, greater saphenous and profunda veins. IMPRESSION: 1: No lower extremity deep venous thrombosis. Reviewed, dictated and finalized at location A.
--- NOTE | 2022-06-15 22:30 | ECG_ITS ---
Measurements Intervals [place] Rate: 130 P: 77 MA: 125 QRS: -7 QRSD: 93 T: 76 QT: 290 QTc: 428 Interpretive Statements SINUS TACHYCARDIA BORDERLINE ST-T WAVE ABNORMALITY- HIGH LATERAL LEADS BASELINE ARTIFACT- I, II, III, AVR, AVL, AVF, V1-V6 ABNORMAL ECG COMPARED TO ECG 03/25/2022 11:56:13 HEART RATE HAS INCREASED ST-T WAVE ABNORMALITY NOW PRESENT Electronically Signed On 06-16-2022 7:57:27 CDT by Kevin Hart D.O.
[2022-06-15] MEDS: IPRATROPIUM BR 0.02% INH SOLN 0.5 MG/2.5 ML VIAL INHALATION (22:46)
[2022-06-15 22:52] LABS: Basophils Percent Auto 0.2 % (0.2-1.2); Eosinophils Absolute Auto 0.1 K/mm3 (0-0.3); Eosinophils Percent Auto 0.4 % (0-4.4); Hematocrit 26.1 % (37.0-47.0); Hemoglobin 7.5 g/dL (12.0-15.0); Immature Granulocyte Absolute 0.39 K/mm3 (0.00-0.031); Immature Granulocyte Percent A 2.1 % (0-0.5); Lymphocytes Absolute Auto 2.28 K/mm3 (0.9-3.2); Lymphocytes Percent Auto 12.2 % (18.3-44.2); Mean Corpuscular HGB Conc 28.7 g/dl (32-36); Mean Corpuscular Hemoglobin 23.7 pg (26-34); Mean Corpuscular Volume 82.6 fl (80-100); Mean Platelet Volume 10.2 fl (7.4-10.4); Monocytes Absolute Auto 0.4 K/mm3 (0.1-0.6); Monocytes Percent Auto 1.9 % (2.6-8.5); Neutrophils Absolute Auto 15.6 K/mm3 (1.3-6.7); Neutrophils Percent Auto 83.2 % (45.5-73.1); Platelet Count Result 471 k/mm3 (150-375); Red Blood Count 3.16 M/mm3 (4.2-5.4); Red Cell Distribution Width 21.4 % (11.5-14.5); White Blood Count 18.7 K/mm3 (4.5-10.0)
[2022-06-15] MEDS: SODIUM CHLORIDE 0.9% IV 1,000 ML 999 ML IV CONT ×2 (22:54)
[2022-06-15 23:09] LABS: Alanine Aminotransferase 19 U/L (6-35); Albumin Level 3.4 g/dL (3.5-5.1); Alkaline Phosphatase 121 U/L (38-126); Anion Gap 11 mmol/L (8-16); Aspartate Amino Transferase 34 U/L (14-36); Bilirubin,Total 0.9 mg/dL (0.2-1.3); Blood Urea Nitrogen 51 mg/dL (7-17); Calcium 9.6 mg/dL (8.4-10.2); Carbon Dioxide 23 mmol/L (22-30); Chloride 105 mmol/L (98-107); Estimated Glomerular Filt Rate 25; Glucose 247 mg/dL (65-110); Lactic Acid Reflex 4.9 mmol/L (0.7-2.0); Magnesium 2.8 mg/dL (1.6-2.3); Potassium 5.3 mmol/L (3.4-5.0); Sodium 139 mmol/L (137-145)
[2022-06-15 23:10] LABS: INR 1.6; Prothrombin Time 18.2 Seconds (11.1-14.7)
[2022-06-15 23:11] LABS: Partial Thromboplastin Time 28.2 SECONDS (22.3-36.8)
[2022-06-15 23:12] LABS: Alveolar/Arterial O2 Gradient 361.6 mmHg; Fractional Inspired Oxygen 100 %; HCO3 ABG 18.2 mEq/l (22.0-26.0); Oxygen Content ABG 10.5 %vol (16.0-22.0); Oxygen Saturation ABG 99.7 % (95.0-100.0); Oxyhemoglobin 97.9 % THb (90.0-100.0); PCO2 ABG 35.4 mmHg (35.0-45.0); PO2 FiO2 Ratio Arterial Blood 3.16 %
[2022-06-15 23:16] LABS: Anisocytosis 1+ (NORMAL); Hypochromasia 1+ (NORMAL); Platelet Estimate Increased (Adequate)
[2022-06-15 23:16] LABS: Device BIPAP; Modified Allen's Test Pass; Site Drawn RIGHT RADIAL
[2022-06-15 23:17] LABS: Ovalocytes 1+ (NORMAL); Schistocytes Rare (NORMAL)
[2022-06-15 23:17] LABS: Expiratory Pressure 8 cmH2O; Inspiratory Pressure 16 cmH2O
[2022-06-15 23:20] LABS: NT Pro B Type Natriuretic Pept 7940 pg/mL (19.9-100); Troponin I 0.056 ng/mL (0.000-0.034)
[2022-06-15 23:28] LABS: Influenza A QL RT-PCR Negative (Negative); Influenza B QL RT-PCR Negative (Negative); RSV RNA, RT-PCR Negative (Negative); SARS-CoV-2 RNA PCR Negative
[2022-06-15 23:46] LABS: Procalcitonin 0.8 ng/mL
[2022-06-16] VITALS (25 sets, daily range): BP systolic 81–148; BP diastolic 55–95; PULSE 91–120; RESP 16–42; TEMP 36–37; O2SAT 85–100; BMI 27.6
[2022-06-16 00:06] LABS: Appearance Urine Clear (Clear); Bacteria Urine None Seen /hpf; Bilirubin Urine Negative (Negative); Blood Urine Negative (Negative); Color Urine Dark Yellow (Yellow); Glucose Urine UA Negative (Negative); Ketones Urine Negative (Negative); Leukocyte Esterase Ur Negative LEU/UL (Negative); Nitrate Urine Negative (Negative); Protein Urine Trace mg/dL (Negative); RBC Urine 0-2 /hpf (0-2); Specific Grav Ur 1.023 (1.001-1.035); Squamous Epithelial Cell Urine None seen /hpf (Few); Urobilinogen Urine 0.2 mg/dL (<2.0); WBC Urine 0-5 /hpf
[2022-06-16 00:11] LABS: Add Urine Microscopic? YES
[2022-06-16] MEDS: SODIUM CHLORIDE 0.9% IV 1,000 ML 999 ML IV CONT (00:21)
--- NOTE | 2022-06-16 00:40 | ED.GENADULT ---
HPI - General Adult General Chief complaint: Shortness of Breath/Dyspnea Stated complaint: RESPIRATORY DISTRESS Time Seen by Provider: 06/15/22 22:27 History of Present Illness HPI narrative: patient is a 81 yr old female with history of recent diagnosis of neoplasm and pleural effusion. the patient presents with shortness of breath. She was started on cpap by ems prior to arrival and was given steroids, magnesium sulfate and a dose of epinephrine. The patient the patient recently was admitted and had a thoracentesis. The patient reports that symptoms or not improved by anything Related Data Home Medications Medication Instructions Recorded Confirmed acetaminophen 650 mg 650 mg PO Q8H 12/09/21 04/21/22 tablet,extended release aspirin 81 mg tablet,delayed 81 mg PO DAILY 12/09/21 04/21/22 release insulin glargine 100 unit/mL (3 10 unit subcut DAILY 12/09/21 04/21/22 mL) subcutaneous pen (Lantus Solostar U-100 Insulin) Fortify Probiotic 50 Plus 1 tablet PO DAILY 03/26/22 04/21/22 cholecalciferol (vitamin D3) 125 125 mcg PO DAILY 03/26/22 04/21/22 mcg (5,000 unit) tablet (Vitamin D3) multivitamin 1 tablet PO DAILY 03/26/22 04/21/22 pyridoxine (vitamin B6) 1 tablet PO DAILY 03/26/22 04/21/22 Allergies Allergy/AdvReac Type Severity Reaction Status Date / Time gentamicin Allergy Severe ATN Verified 04/21/22 14:52 codeine Allergy Mild nausea Verified 04/21/22 14:52 methocarbamol AdvReac Mild Rash Verified 04/21/22 14:52 Contrast Media Allergy Mild N/V, Uncoded 04/21/22 14:52 STOMACH PAIN Review of Systems Review of Systems: A 10 system review of systems was completed on the patient and is negative except for what is stated in the HPI. Nursing and ancillary documentation was reviewed. [facility] Past Medical History Medical History Breast cancer Status post lumpectomy and anti hormone therapy. Chronic kidney disease, stage 3 (moderate) Chronic pain Hearing loss History of tobacco use Insomnia, unspecified Insulin dependent type 2 diabetes mellitus Mixed hyperlipidemia Reflux esophagitis Shortness of breath Vitamin D deficiency Surgical History Surgical History History of appendectomy History of breast biopsy History of exploratory laparotomy History of hernia repair History of lumpectomy Family History Family History Mother Cerebrovascular accident Family history of malignant neoplasm of breast in first degree relative Acute myocardial infarction Sibling Malignant neoplasm of prostate Family history of malignant neoplasm Father Acute myocardial infarction Other Diabetes mellitus Social History Social History Social History: Surrogate medical decision maker: Janet Lo, daughter. Code status: Full code. Smoking packs per day: 0.8 Smoking cigarettes per day: 16.0 Years smoked: 40 Smoking pack-years: 32.00 Smoking status: Former smoker Tobacco type: cigarettes Smoking end date: 03/22/90 Alcohol intake: never Substance use: never Lack of Transportation: No Lack of Food: Never True Current Housing: I Have Housing Concerned About Future Housing: No Difficulty Paying Gas/Electric Bills: No Difficulty Paying for Meds: No Currently Unemployed: No Education: High School Diploma/GED Difficulty w/ Childcare or Family Care: No Additional living arrangements comments: with 1 daughter. Lives in [place]. 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 Spiritual care concerns: No Exam Narrative: GENERAL: Well-appearing, well-nourished, and in no acute distress. HEAD: Normocephalic, atraumatic. EYES: PERRLA and EOMI. ENT: Nares clear, no rhinorrhea o
[2022-06-16 01:49] LABS: Reflex Lactic Acid Yes or No Add Lactic
[2022-06-16] MEDS: SODIUM CHLORIDE 0.9% IV 1,000 ML 125 ML IV CONT (01:52)
[2022-06-16 02:27] LABS: Hematocrit 24.3 % (37.0-47.0)
[2022-06-16 02:42] LABS: Lactic Acid 3.7 mmol/L (0.7-2.0)
[2022-06-16 02:59] LABS: Troponin I 0.083 ng/mL (0.000-0.034)
--- NOTE | 2022-06-16 05:16 | ADMGEN ---
This patient, Maria Dolores Lo, was admitted to IMU Room 231-01. Patient/family oriented to hospital policies and general routines including ID bracelet, bed and alarms, visiting hours, pain management, procedures, bathroom and other care routines, personal items, smoking policy, room service/diet, and visiting hours. Information on how to activate the Rapid Response Team has been discussed. Patient/Family are encouraged to report perceived risks to care and to ask questions if they do not understand what they are told or what they should do.
[2022-06-16 06:14] LABS: Glucose Point of Care 325 mg/dl (65-105)
[2022-06-16] MEDS: MORPHINE SULFATE (*CRX) 2 MG/ML INJ 1 MG IV PUSH (06:17)
[2022-06-16] MEDS: LORazepam INJ (*CRX) 2 MG/ML VIAL 1 MG IV PUSH (06:19)
[2022-06-16 07:13] LABS: Hematocrit 23.4 % (37.0-47.0)
[2022-06-16 07:23] LABS: Hemoglobin 6.7 g/dL (12.0-15.0)
[2022-06-16 07:42] LABS: Troponin I 0.104 ng/mL (0.000-0.034)
--- NOTE | 2022-06-16 07:45 | ECG_ITS ---
Measurements Intervals [place] Rate: 100 P: 70 DE: 141 QRS: -5 QRSD: 96 T: 66 QT: 344 QTc: 445 Interpretive Statements SINUS TACHYCARDIA EARLY PRECORDIAL R/S TRANSITION MINIMAL Q WAVES- HIGH LATERAL LEADS BASELINE ARTIFACT- I, II, AVR, AVL, AVF, V1, V6 BORDERLINE ECG COMPARED TO ECG 06/15/2022 22:39:34 HEART RATE HAS DECREASED Electronically Signed On 06-16-2022 8:03:30 CDT by Kevin Hart D.O.
[2022-06-16 08:23] LABS: INR 1.7; Prothrombin Time 19.6 Seconds (11.1-14.7)
--- NOTE | 2022-06-16 08:35 | PM.IMHP ---
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 She presented to the ED for evaluation of shortness of breath. The patient is tachypneic and worsening work of breathing when answering questions. Medical history from the patient was limited due to this and the majority of information was obtained from the medical records. The patient reports she was more short of breath in the past few days and oxygen level was low approximately 91% at one point so she used her home oxygen. It is unclear how much oxygen she was using at this time. EMS notes indicate she was placed on pap therapy 15L in route. Vital signs in the ED demonstrate temp 36.6C, HR 133, RR 37, BP was hypotensive 63/43. Chest x-ray showed large left pleural effusion. Lab work was significant for WBC 18.7, H/H 7.5/26, BUN 51, creatinine 1.9, glucose 247, K 5.3, lactic acid 4.9, troponin I 0.056, BNP 7940, and procalcitonin 0.8. ABG drawn on bipap with 100% FiO2 showed pH 7.33, paCO2 35. paO2 316, and HCO3 18.2. Serum bicarb was 23. She was treated with levalbuterol and ipratropium nebs, 3 liters NS fluids, IV Rocephin 1 gram, IV Azithromycin 500 mg, 1 mg IV morphine and 1 mg IV ativan. She was admitted to IMU for further management of acute respiratory distress and sepsis. Patient reports nonproductive cough and chills. She denies fever, rigors, sputum, or myalgias. <Gay Bach APRN - Last Filed: 06/16/22 17:25> Review of Systems Review of Systems: ROS unobtainable: Yes unobtainable due to medical condition <Gay Bach APRN - Last Filed: 06/16/22 17:25> PMFSH Past Medical History Medical History: Medical History (Updated 06/16/22 @ 09:03 by Gay Bach APRN) Breast cancer Status post lumpectomy and anti hormone therapy. Chronic kidney disease, stage 3 (moderate) Chronic pain Hearing loss History of tobacco use Insomnia, unspecified Insulin dependent type 2 diabetes mellitus Mixed hyperlipidemia Recurrent breast cancer with lung and liver metastasis Reflux esophagitis Vitamin D deficiency <Gay Bach APRN - Last Filed: 06/16/22 17:25> Surgical History Surgical History: Surgical History History of appendectomy History of breast biopsy History of exploratory laparotomy History of hernia repair History of lumpectomy <Gay Bach APRN - Last Filed: 06/16/22 17:25> Family History Family History: Family History Mother Cerebrovascular accident Family history of malignant neoplasm of breast in first degree relative Acute myocardial infarction Sibling Malignant neoplasm of prostate Family history of malignant neoplasm Father Acute myocardial infarction Other Diabetes mellitus <Gay Bach APRN - Last Filed: 06/16/22 17:25> Social History Social History: Social History Social History: Surrogate medical decision maker: Janet Lo, daughter. Code status: Full code. Smoking packs per day: 0.8 Smoking cigarettes per day: 16.0 Years smoked: 40 Smoking pack-years: 32.00 Smoking status: Former smoker Tobacco type: cigarettes Smoking end date: 03/22/90 Alcohol intake: never Substance use: never Lack of Transportation: No Lack of Food: Never True Current Housing: I Have Housing Concerned About Future Housing: No Difficulty Paying Gas/Electric Bills: No Difficulty Paying for Meds: No Currently Unemployed: No Education: High School Diploma/GED Difficulty w/ Childcare or
[2022-06-16 08:52] LABS: Glucose Point of Care 320 mg/dl (65-105)
--- NOTE | 2022-06-16 09:02 | PM.CNPUL ---
Assessment and Plan Assessment and plan (1) Recurrent breast cancer: Code(s): C50.919 - Malignant neoplasm of unspecified site of unspecified female breast Status: Acute Assessment and Plan: Patietn with ultrasound-guided core needle biopsy of the thickened parietal pleura at the same time.??Pathology demonstrated poorly differentiated carcinoma suggesting recurrent-metastatic triple negative breast carcinoma.??The patient was previously discharged on 1 L nasal cannula oxygen at rest and could not ambulate.? PET scan per oncology note on 04/20/2022 showed a large malignant left pleural effusion, mediastinal left hilar, axillary and cervical lymphadenopathy and left lateral hepatic metastases. 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 Patient has followed up with Oncology, Dr. Dong, and last note on 05/22/2022 stated she started Xeloda 1500 BID 14 days on and 7 days off on 05/05/2022. she had significant tiredness and fatigue with poor appetite and intermittent diarrhea she had lost 9 lb. The plan was to hold treatment for 2 weeks and reduce the dose to 1000 mg twice a day of Xeloda for 2 weeks on and 1 week off. Currently the patient has a large left pleural effusion with complete opacification of the left hemithorax that is likely a malignant pleural effusion. She is in acute respiratory distress and agree with emergent thoracentesis to exclude an empyema. If Oncology feels additional therapy may be beneficial and the patient wishes for additional therapy then she should be referred to a higher level of care facility with a thoracic surgery team that can evaluate her for pleurodesis or a permanent pleural drainage catheter. Currently she is full code and level of care should be discussed with patient and family. I have placed the patient on 3 L nasal cannula check a blood gas in 1 hour. The patient denied fever, chills, phlegm production or hemoptysis and states that she has a minimal cough with node difference than her baseline. I doubt she has an active bacterial infection but at this time would broadly cover her with vancomycin, imipenem and Levaquin pending the above workup. Discussed with Gay Bach. Will follow with you. History of Present Illness History of Present Illness Consult date: 06/16/22 Chief complaint: Respiratory Failure,Large Left-sided Pleural Effus Narrative: 06/16/2022: This is a new pulmonary consult for complete opacification of the left hemithorax. 81-year-old woman with a history of hypertension, diabetes, hyperlipidemia, breast cancer status post lumpectomy approximately 15 years ago followed by 5 years of tamoxifen?followed with yearly mammograms a last of which was negative on 02/19/2022.? Patient admitted to the hospital on 03/25/2022 for 5 weeks shortness of breath and was found to have a large left pleural effusion with a left upper lobe mass 4 x 8 x 3.6 cm.? Patient underwent a left thoracentesis of 1000 mL that was noninfectious and cytology was negative.? Her BEAR improved greatly.? On 03/27/2022 the patient underwent a 2nd left thoracentesis with 850 mL of clear fluid removed and an ultrasound-guided core needle biopsy of the thickened parietal pleura at the same time.??Pathology demonstrated poorly differentiated carcinoma suggesting recurrent-metastatic triple negative breast carcinoma.??The patient was discharged on 1 L nasal cannula oxygen at rest and could not ambulate.? PET scan per oncology note on 04/20/2022 showed a large malignant left pleural effusion, mediastinal left hilar, axillary and cervical lymphadenopathy and left lateral hepatic metastases. 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 patient has followed up with Oncology, Dr. Dong, and last note on 05/22/2022 stated she started Xeloda 1500 BID 14 days on and 7 days off on 05/05/2022. she had significant tiredness and fatigue with poor appetite and intermittent
[2022-06-16 09:40] LABS: Alveolar/Arterial O2 Gradient 114.3 mmHg; Base Excess ABG -7.4 mEq/l (+/-2.0); Carboxyhemoglobin 0.3 % THb (0-2.0); Fractional Inspired Oxygen 32 %; HCO3 ABG 17.5 mEq/l (22.0-26.0); Methemoglobin ABG 0.6 %THb (0-1.5); Oxygen Content ABG 9.7 %vol (16.0-22.0); Oxygen Saturation ABG 94.7 % (95.0-100.0); Oxyhemoglobin 92.1 % THb (90.0-100.0); PCO2 ABG 32.7 mmHg (35.0-45.0); PO2 ABG 75.6 mmHg (80.0-100.0); PO2 FiO2 Ratio Arterial Blood 2.36 %; pH ABG 7.346 (7.350-7.450)
[2022-06-16 09:41] LABS: Device NASAL CANNULA; Modified Allen's Test Pass; Site Drawn RIGHT RADIAL; Total Hemoglobin 7.4 g/dL (12.0-18.0)
[2022-06-16 10:04] LABS: Hemoglobin A1C 6.2 % (<5.7)
[2022-06-16] MEDS: INSULIN ASPART (*BKC) 100 UNITS/ML SUB-Q (13:29)
[2022-06-16 13:31] LABS: Glucose Point of Care 345 mg/dl (65-105)
[2022-06-16 13:57] LABS: pH Pleural Fluid < 7.000 (7.210-7.500)
[2022-06-16 15:06] LABS: Appearance Pleural Fluid Bloody (Clear); Color Pleural Fluid Red (Colorless); Lymphocytes Pleural Fluid 3 %; Monocytes Pleural Fluid 10 %; Neutrophils Pleural Fluid 84 % (0-25); Pleural fluid source Pleural fluid
[2022-06-16 15:07] LABS: Macrophages Pleural Fluid 3 %; Nucleated Cell Pleural Fluid 4290 /uL (0-1000); RBC Pleural Fluid 55000 /uL (0-0)
[2022-06-16] MEDS: ACETAMINOPHEN 325 MG TABLET 650 MG PO ×2 (15:34→21:12)
[2022-06-16] MEDS: TUBING, BLOOD PLUM PUMP TUBING 1 EACH XX (15:34)
[2022-06-16] MEDS: SODIUM CHLORIDE 0.9% IV 250 ML 30 ML IV CONT (15:34)
[2022-06-16 17:30] LABS: Glucose Point of Care 246 mg/dl (65-105)
[2022-06-16 20:28] LABS: Glucose Point of Care 259 mg/dl (65-105)
[2022-06-16] MEDS: INSULIN GLARGINE (*BKC) 100 UNITS/ML 17 UNITS SUB-Q (21:13)
[2022-06-16] MEDS: MORPHINE SULFATE (*CRX) 4 MG/ML INJ IV PUSH (22:37)
[2022-06-16] MEDS: LORazepam INJ (*CRX) 2 MG/ML VIAL 0.5 MG IV PUSH (22:37)
[2022-06-17] VITALS (12 sets, daily range): BP systolic 131–151; BP diastolic 75–87; PULSE 97–118; RESP 24–35; TEMP 36.2–37.2; O2SAT 88–99
[2022-06-17] MEDS: MORPHINE SULFATE (*CRX) 4 MG/ML INJ IV PUSH ×4 (01:25→15:49)
[2022-06-17 04:30] LABS: Basophils Percent Auto 0.1 % (0.2-1.2); Hematocrit 29.7 % (37.0-47.0); Hemoglobin 9.2 g/dL (12.0-15.0); Immature Granulocyte Absolute 0.34 K/mm3 (0.00-0.031); Immature Granulocyte Percent A 1.8 % (0-0.5); Lymphocytes Absolute Auto 0.63 K/mm3 (0.9-3.2); Lymphocytes Percent Auto 3.3 % (18.3-44.2); Mean Corpuscular Hemoglobin 24.7 pg (26-34); Mean Corpuscular Volume 79.6 fl (80-100); Mean Platelet Volume 10.6 fl (7.4-10.4); Monocytes Absolute Auto 0.4 K/mm3 (0.1-0.6); Neutrophils Absolute Auto 17.8 K/mm3 (1.3-6.7); Neutrophils Percent Auto 92.8 % (45.5-73.1); Nucleated Red Blood Cells Perc 0.1 % (0.0-0.2); Platelet Count Result 389 k/mm3 (150-375); Red Blood Count 3.73 M/mm3 (4.2-5.4); Red Cell Distribution Width 19.9 % (11.5-14.5); White Blood Count 19.1 K/mm3 (4.5-10.0)
[2022-06-17] MEDS: LORazepam INJ (*CRX) 2 MG/ML VIAL 0.5 MG IV PUSH ×2 (04:33→12:32)
[2022-06-17 04:42] LABS: Alanine Aminotransferase 26 U/L (6-35); Albumin Level 3.1 g/dL (3.5-5.1); Alkaline Phosphatase 108 U/L (38-126); Anion Gap 13 mmol/L (8-16); Aspartate Amino Transferase 59 U/L (14-36); Bilirubin,Total 0.6 mg/dL (0.2-1.3); Blood Urea Nitrogen 59 mg/dL (7-17); Calcium 9.2 mg/dL (8.4-10.2); Carbon Dioxide 18 mmol/L (22-30); Chloride 108 mmol/L (98-107); Estimated Glomerular Filt Rate 27; Glucose 244 mg/dL (65-110); Potassium 5.9 mmol/L (3.4-5.0); Sodium 139 mmol/L (137-145)
[2022-06-17 07:26] LABS: Lactate Dehydrogenase 339 U/L (120-246)
--- NOTE | 2022-06-17 08:30 | PM.PNPUL ---
Progress Note: A&P Assessment and Plan (1) Recurrent breast cancer: Code(s): C50.919 - Malignant neoplasm of unspecified site of unspecified female breast Status: Acute Assessment and Plan: Patietn with ultrasound-guided core needle biopsy of the thickened parietal pleura at the same time.??Pathology demonstrated poorly differentiated carcinoma suggesting recurrent-metastatic triple negative breast carcinoma.??The patient was previously discharged on 1 L nasal cannula oxygen at rest and could not ambulate.? PET scan per oncology note on 04/20/2022 showed a large malignant left pleural effusion, mediastinal left hilar, axillary and cervical lymphadenopathy and left lateral hepatic metastases. 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 Patient has followed up with Oncology, Dr. Dong, and last note on 05/22/2022 stated she started Xeloda 1500 BID 14 days on and 7 days off on 05/05/2022. she had significant tiredness and fatigue with poor appetite and intermittent diarrhea she had lost 9 lb. The plan was to hold treatment for 2 weeks and reduce the dose to 1000 mg twice a day of Xeloda for 2 weeks on and 1 week off. 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 She is in acute respiratory distress and agree with emergent thoracentesis to exclude an empyema. If Oncology feels additional therapy may be beneficial and the patient wishes for additional therapy then she should be referred to a higher level of care facility with a thoracic surgery team that can evaluate her for pleurodesis or a permanent pleural drainage catheter. Currently she is full code and level of care should be discussed with patient and family. I have placed the patient on 3 L nasal cannula check a blood gas in 1 hour. ABG was 7.35/33/76 The patient denied fever, chills, phlegm production or hemoptysis and states that she has a minimal cough with node difference than her baseline. I doubt she has an active bacterial infection but at this time would broadly cover her with vancomycin, imipenem and Levaquin pending the above workup. Left thoricentsis of 1000 ml dark brown fluid, pH < 7.00, gram stain WBC with NOS, WBC 4290 with a differential 84% neutrophils, 3% lymphocytes, 10% monocytes, 3% macrophages. Given the low pH, I recommended transfer to a higher level of care facility for thoracic surgery consultation and this was presented to the family and they wished not to pursue additional interventions, not pursue a transfer and her code status was changed to DNR. Hospice discussions were initiated and the family will discuss this and make a decision on 06/17. 06/17 Patient had episodes of desaturation yesterday afternoon requiring up to 15 L nasal cannula and then reinstitution of the noninvasive ventilator. She was agitated required morphine and Ativan. Currently she is in mild respiratory distress on noninvasive ventilation and she does follow simple commands but showing 2 fingers and wiggling toes but she is less verbal today. Her white blood cell count is 19.1, creatinine is 1.8, her saturations on noninvasive ventilation with the AVAPS settings above and 70% FiO2 are 96%. Plan: patient it with mild respiratory distress and hypoxic respiratory failure requiring noninvasive ventilation. 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 Definitive treatment would require evacuation of the pleural effusion which has been declined by the family. At this time would continue vanco, imipenem and levaquin (day 2) pending pleural cultures. Further discussions with the family regarding level of care and hospice. Will follow with you. Subjective Date/time seen: 06/17/22 08:30 Interval history: 06/16
[2022-06-17 08:37] LABS: Glucose Point of Care 222 mg/dl (65-105)
[2022-06-17] MEDS: CHOLECALCIFEROL 1,000 UNITS TABLET 5000 UNITS PO (09:01)
[2022-06-17] MEDS: FERROUS SULFATE 324 MG TABLET PO (09:02)
[2022-06-17] MEDS: CYANOCOBALAMIN 1,000 MCG TABLET 1000 MCG PO (09:02)
[2022-06-17] MEDS: MEGESTROL ACETATE (*CHEMO) ORAL SUSP 40 MG/ML SYR 200 MG PO (09:02)
[2022-06-17] MEDS: MULTIVITAMINS THERAPEUTIC TAB (*BKC) 1 TABLET PO (09:02)
[2022-06-17] MEDS: SIMVASTATIN 20 MG TABLET PO (09:02)
[2022-06-17] MEDS: INSULIN ASPART (*BKC) 100 UNITS/ML SUB-Q ×2 (09:24→12:33)
--- NOTE | 2022-06-17 10:16 | P.CDI_ITS ---
CDI Query Clarification Request moderate malnutrition <Adria Newton MD - Last Filed: 06/17/22 10:48> Clarified Diagnosis Clarified Diagnosis: BMI 27.6 Nutritional Diagnostic Statement: Moderate malnutrition related to increased protein needs in the setting of chronic disease or condition (ESRD/Cancer) as evidence by <75% of estimated protein needs > 7 days; significant weight loss of 20 lbs in the past 2 months ( 13%). Please refer to the Comprehensive Nutrition Assessment for further information. Please clarify the severity of protein calorie malnutrition: * Mild * Moderate * Severe * Other/unspecified <Shannon Cross RN - Last Filed: 06/17/22 10:23>
--- NOTE | 2022-06-17 10:21 | PCRCNOTE ---
RT CALLED BY RN TO SPEAK WITH SHERIFF DETECTIVE ABOUT BIPAP SETTINGS. SHERIFF DETECTIVE ASKING FOR S/T SETTINGS. PT IS ON AVAPS. RT RELAYED TO SHERIFF DETECTIVE THAT PT'S S/T SETTINGS ARE 16 R16.
--- NOTE | 2022-06-17 12:00 | PM.DS ---
DS: Admitting Diagnosis Discharge Date 06/17/2022 Admitting Diagnosis Dyspnea, respiratory failure, large left pleural effusion DS: Discharge Diagnosis Discharge Diagnosis (1) Hospice care: Code(s): Z51.5 - Encounter for palliative care Status: Acute (2) Recurrent breast cancer: Code(s): C50.919 - Malignant neoplasm of unspecified site of unspecified female breast Status: Acute DS: Summary Hospital Course Hospital Course: ? 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 She presented to the ED for evaluation of shortness of breath. The patient is tachypneic and worsening work of breathing when answering questions. Vital signs in the ED demonstrate temp 36.6C, HR 133, RR 37, BP was hypotensive 63/43. Chest x-ray showed large left pleural effusion. Lab work was significant for WBC 18.7, H/H 7.5/26, BUN 51, creatinine 1.9, glucose 247, K 5.3, lactic acid 4.9, troponin I 0.056, BNP 7940, and procalcitonin 0.8. ABG drawn on bipap with 100% FiO2 showed pH 7.33, paCO2 35. paO2 316, and HCO3 18.2. Serum bicarb was 23. She was treated with levalbuterol and ipratropium nebs, 3 liters NS fluids, IV Rocephin 1 gram, IV Azithromycin 500 mg, 1 mg IV morphine and 1 mg IV ativan. She was admitted to IMU for further management of acute respiratory distress and sepsis.? Pulmonology was consulted. Patient underwent thoracentesis for large left pleural effusion and 1200 mL of bloody fluid was obtained. Patient's prognosis is poor and after discussion with the family they decided to opt for hospice. Patient is being discharged home with home hospice today Time Spent with Patient Time attestation: Total time spent providing and/or coordinating discharge services: Exam Const: Other: mild distress on NIV HENMT: Head: normal to inspection Ears: hearing grossly normal bilaterally Eyes: General: appearance normal, both eyes and all related structures Neck: Neck: normal visual inspection Chest: Chest palpation & inspection: normal inspection of the chest Resp: Auscultation: no rales, no rhonchi, no wheezes and diminished lung sounds (left) Cardio: Jugular venous distension: no JVD GI: Inspection: normal to inspection Skin: General skin exam: normal color Neuro: Other: she did show 2 fingers to verbal commands and wiggle her toes to verbal commands. Extrem: General: normal to inspection and edema Psych: Appearance: grossly normal DS: Data Data Completed and Pending Pending studies at discharge: Pending at discharge 06/16/22 13:03 Cytology [PTH] Routine Labs on day of discharge: Labs from last 24 hours 06/17/22 06/17/22 06/17/22 07:38 04:04 04:04 WBC 19.1 H RBC 3.73 L Hgb 9.2 L Hct 29.7 L MCV 79.6 L MCH 24.7 L MCHC 31.0 L RDW 19.9 H Plt Count 389 H MPV 10.6 H Immature Gran % (Auto) 1.8 H Neut % (Auto) 92.8 H Lymph % (Auto) 3.3 L Centre % (Auto) 2.0 L Eos % (Auto) 0.0 Baso % (Auto) 0.1 L Lymph # (Auto) 0.63 L [place] # (Auto) 0.4 Eos # (Auto) 0.0 Baso # (Auto) 0.0 Abs Immat Gran (auto) 0.34 H Absolute Neuts (auto) 17.8 H Absolute Nucleated RBC 0.0 Nucleated RBC % 0.1 Sodium 139 Potassium 5.9 H Chloride 108 H Carbon Dioxide 18 L Anion Gap 13 BUN 59 H Creatinine 1.80 H Estim Creat Clear Calc Not Reportable Estimated GFR 27 L Glucose 244 H POC Capillary Glucose 222 H Calcium 9.2 Total Bilirubin 0.6 AST 59 H ALT 26 Alkaline Phosphatase 108 Lactate Dehydrogenase Total Protein 6.0 L Albumin 3.1 L Pleural Fluid Source Pleural Color Pleural Appearance Pleural pH Pleural RBC Pleural Nuc Cells Pleural Neutrophils Pleural Lymphocytes Pleural Monocytes Pleural Macrophages Pleural Total Protein Pleural LDH Pleural Glucose B
[2022-06-17 12:21] LABS: Glucose Point of Care 242 mg/dl (65-105)
[2022-06-17] MEDS: ACETAMINOPHEN 325 MG TABLET 650 MG PO (15:50)
[2022-06-19 14:03] LABS: Glucose Pleural Fluid 30 mg/dL; Total Protein Pleural Fluid 3.8 g/dL
== END 2022-06-17 16:43 | disposition hospice, home (50) | DRG 597 ==
LOC: ANHED 06-16 00:54 → ANHICU 06-16 04:20 → ANHIMU 06-16 04:52
PROVIDERS: Internal Medicine Pulmonary Disease; Nurse Practitioner Family; Admitting Provider Internal Medicine; Emergency Provider Emergency Medicine; PCP Family Medicine; Visit Provider Hospitalist
DX: C50.919 Malignant neoplasm of unspecified site of unspecified female breast (principal); A41.9 Sepsis, unspecified organism; J96.00 Acute respiratory failure, unspecified whether with hypoxia or hypercapnia; C78.00 Secondary malignant neoplasm of unspecified lung; C78.7 Secondary malignant neoplasm of liver and intrahepatic bile duct; E44.0 Moderate protein-calorie malnutrition; J90 Pleural effusion, not elsewhere classified; D63.1 Anemia in chronic kidney disease; E11.22 Type 2 diabetes mellitus with diabetic chronic kidney disease; E78.2 Mixed hyperlipidemia; E55.9 Vitamin D deficiency, unspecified; N18.30 Chronic kidney disease, stage 3 unspecified; G89.29 Other chronic pain; I95.9 Hypotension, unspecified; I12.9 Hypertensive chronic kidney disease with stage 1 through stage 4 chronic kidney disease, or unspecified chronic kidney disease; K21.9 Gastro-esophageal reflux disease without esophagitis; R77.8 Other specified abnormalities of plasma proteins; Z66 Do not resuscitate; Z20.822 Contact with and (suspected) exposure to COVID-19; Z79.82 Long term (current) use of aspirin; Z79.4 Long term (current) use of insulin; Z90.49 Acquired absence of other specified parts of digestive tract; Z17.1 Estrogen receptor negative status [ER-]; Z99.81 Dependence on supplemental oxygen; Z68.27 Body mass index [BMI] 27.0-27.9, adult
CPT/HCPCS: 32555; 36415; 36430; 36600; 71045; 80053; 81001; 82375; 82805; 82945; 82948; 83036; 83050; 83605; 83615; 83735; 83880; 83986; 84145; 84157; 84484; 85014; 85018; 85025; 85610; 85730; 86850; 86900; 86901; 86923; 87015; 87040; 87070; 87075; 87081; 87102; 87116; 87205; 87206; 87637; 88108; 88184; 88305; 88342; 89051; 93005; 93970; 94002; 94640; 96361; 96365; 96367; 96375; 99285; A9270; G0378; J0456; J0696; J0743; J1815; J1956; J2060; J2270; J3370; J7030; J7050; P9016